=== PATIENT | male | born 1960 | race Caucasian/White ===

== ENCOUNTER 2019-08-07 21:54 | Emergency (ER) | payer MEDICAID, SELFPAY ==
--- NOTE | 2019-08-07 21:55 | PC.NURSE ---
cervical collar placed. pt agreeable to plan of care
[2019-08-07 22:06] VITALS: BP 152/75; PULSE 78; RESP 17; TEMP 36.7; O2SAT 98; BMI 24.5
--- NOTE | 2019-08-07 22:20 | CT_ITS ---
PROCEDURE: CT HEAD/BRAIN WO CON CLINICAL INDICATION: fall Head injury with headache/pain, contusion, abrasion or hematoma COMPARISON: No exams were available for comparison TECHNIQUE: Axial images obtained. All CT scans at the facility use one or more dose reduction, viz: automated exposure control, ma/kV adjustment per patient size (including targeted exams where dose is matched to indication, i.e. head), or iterative reconstruction technique. FINDINGS: No midline shift, mass effect, intracranial hemorrhage, hydrocephalus, or extra-axial fluid collection is evident. The calvarium has an unremarkable appearance. No mastoid effusion. No sinus air-fluid level. IMPRESSION: No acute intracranial finding Dictated by: Marbin Coleman MD 08/08/2019 06:53 Electronically signed by Marbin Coleman MD in [facility] 08/08/2019 06:53
--- NOTE | 2019-08-07 22:20 | XR_ITS ---
PROCEDURE: XR PELVIS 1-2V CLINICAL INDICATION: fall Posttraumatic pain COMPARISON: No exams were available for comparison TECHNIQUE: XR Pelvis AP View FINDINGS: No fracture or dislocation is evident. No significant degenerative change. No lytic or blastic change. IMPRESSION: No acute findings. Dictated by: Marbin Coleman MD 08/08/2019 05:30 Electronically signed by Marbin Coleman MD in [facility] 08/08/2019 05:30
--- NOTE | 2019-08-07 22:20 | XR_ITS ---
PROCEDURE: XR CHEST PORTABLE CLINICAL HISTORY: fall Posttraumatic pain COMPARISON: No exams were available for comparison FINDINGS: The cardiomediastinal silhouette and pulmonary vascularity are within normal limits. The lungs are clear without infiltrates, suspicious nodules, or pleural effusions. No acute bony abnormalities. IMPRESSION: No acute findings. Dictated by: Marbin Coleman MD 08/08/2019 05:31 Electronically signed by Marbin Coleman MD in [facility] 08/08/2019 05:31
--- NOTE | 2019-08-07 22:20 | CT_ITS ---
PROCEDURE: CT CERVICAL SPINE WO CON CLINICAL INDICATION: fall Neck injury with pain, contusion/abrasion or hematoma, cervical sprain/strain COMPARISON: No exams were available for comparison TECHNIQUE: Axial images obtained with sagittal and coronal reformats. All CT scans at the facility use one or more dose reduction, viz: automated exposure control, ma/kV adjustment per patient size (including targeted exams where dose is matched to indication, i.e. head), or iterative reconstruction technique. Axial spiral CT scanning performed of the cervical spine beginning at the base of the skull and continuing to the upper T-spine. 3-D multiplanar reconstruction with 3-D manipulation of volumetric data set in image rendering was completed by the radiologist and/or technologist with the supervision of the radiologist on independent workstation. FINDINGS: Normal alignment. Mild degenerative disc disease C2-C3 and C5-C6 with minimal posterior osteophytes at C5-C6 mild degenerative disc disease C3-C4 with mild right foraminal narrowing from uncovertebral hypertrophy No acute fracture or dislocation. Calcified granuloma left apex. Incomplete visualization of the a 3 mm nodule in the right upper lobe anteriorly. There are other smaller nodules in the right apex. IMPRESSION: Degenerative changes, no acute fracture. Right apical nodules. Consider six-month follow-up chest CT Dictated by: Marbin Coleman MD 08/08/2019 06:57 Electronically signed by Marbin Coleman MD in [facility] 08/08/2019 06:57
--- NOTE | 2019-08-07 22:23 | PC.NURSE ---
called and asked lab to draw blood on patient, spoke with alvaro
[2019-08-07 22:40] LABS: Basophils % 0.3 % (0.1-2.0); Eosinophils # 0.1 K/mm3 (0.0-0.4); Eosinophils % 0.7 % (0.1-12.0); Hematocrit 41.9 % (42.0-52.0); Hemoglobin 14.9 g/dL (14.1-18.0); Lymphocytes # 1.9 K/mm3 (0.7-4.5); Lymphocytes % 28.2 % (10-50); Mean Corpuscular HGB Conc 35.6 g/dL (31.8-35.4); Mean Corpuscular Hemoglobin 33.9 pg (27.0-31.2); Mean Platelet Volume 7.1 fl (7.4-10.4); Monocytes # 0.3 K/mm3 (0.1-1.0); Monocytes % 4.7 % (1.7-9.3); Neutrophils # 4.4 K/mm3 (1.8-7.8); Neutrophils % 66.1 % (37.0-80.0); Platelet Count 272 K/mm3 (142-424); Red Blood Count 4.41 M/mm3 (4.60-6.20); Red Cell Distribution Width 14.2 % (11.5-17.5); White Blood Count 6.6 K/mm3 (4.8-10.8)
--- NOTE | 2019-08-07 22:46 | HMH.EDOD ---
ED Disposition Clinical Impression: Poisoning by opiate or related narcotic Disposition: Home, Self-Care Condition on Discharge: Good Instructions: DI for Drug Overdose in Adults Additional Instructions: call pcp for follow up Referrals: Provider,Referral, [Primary Care Provider] - - Critical Care Critical Care Time: No Attestation: On 08/07/19, the high probability of a clinically significant, sudden or life threatening deterioration of the following system(s) required my full and direct attention, intervention and personal management. The time I documented below is in addition to time spent performing reported procedures but includes the following listed in this critical care notation. Medical Decision Making - Medical Records Medical records reviewed: Yes: I reviewed the patient's medical records. - Josue Inquiry Pt receiving controlled substance: No Vital Signs: 08/07/19 22:06 Temperature 98.0 F Temperature Source Oral Pulse Rate [Right Brachial] 78 Respiratory Rate 17 Blood Pressure [Right Arm] 152/75 H Blood Pressure Mean [Right Arm] 100 Blood Pressure Source [Right Arm] Automatic Cuff Blood Pressure Position [Right Arm] Sitting 02 Sat by Pulse Oximetry 98 Oxygen Delivery Method Room Air - Lab Data Lab results reviewed: Yes: I reviewed the patient's lab results. Lab Results 08/07/19 22:31: WBC 6.6, RBC 4.41 L, Hgb 14.9, Hct 41.9 L, MCV 95.0 H, MCH 33.9 H, MCHC 35.6 H, RDW 14.2, Plt Count 272, MPV 7.1 L, Neut % (Auto) 66.1, Lymph % (Auto) 28.2, [place] % (Auto) 4.7, Eos % (Auto) 0.7, Baso % (Auto) 0.3, Neut # (Auto) 4.4, Lymph # (Auto) 1.9, [place] # (Auto) 0.3, Eos # (Auto) 0.1, Baso # (Auto) 0.0 08/07/19 22:31: Sodium 136, Potassium 3.5, Chloride 104, Carbon Dioxide 21 L, Anion Gap 14.5, BUN 12, Creatinine 0.90, Estimated Creat Clear 76, Estimated GFR 86, Est GFR ( Amer) 104, Glucose 111 H, Calcium 8.7, Total Bilirubin 0.6, AST 58, ALT 28, Alkaline Phosphatase 88, Total Protein 7.3, Albumin 4.2, Globulin 3.1, Albumin/Globulin Ratio 1.4, Salicylates < 1.0 L, Acetaminophen < 10 L 08/07/19 22:31: Plasma/Serum Alcohol 58 H Result diagrams: 08/07/19 22:31 08/07/19 22:31 Orders (Tests/Meds): ORDERS Category Date Time Status CT cervical spine wo con Stat Cat Scan 08/07/19 22:[address] head/brain wo con Stat Cat Scan 08/07/19 22:20 Taken XR chest portable Stat Exams 08/07/19 22:20 Taken XR pelvis 1-2V Stat Exams 08/07/19 22:20 Taken UA [Urinalysis and Microscopic] Stat Lab 08/07/19 23:32 Ordered UDS [Drug Screen,Urine] Stat Lab 08/07/19 23:32 Ordered - Radiology Data #1 Image(s): Chest, Pelvis Image Reviewed: Yes I reviewed the patient's radiology image Preliminary Findings: No Fracture Seen - CT Data CT Scan: Head, C-Spine Time Received: 23:[address] Reviewed: Yes: I have viewed the radiologist's interpretation Preliminary Findings: No Fracture Seen - Reevaluation(s) Time: 23:48 Reevaluation #1: stable Overdose HPI - General Chief Complaint: Overdose Stated Complaint: unresponsive Time Seen by Provider: 08/07/19 22:15 Mode of Arrival: Family Vehicle Source of Information: Patient, Medical Record Limitations: No Limitations Description of Symptoms (Recalled from ER Triage Doc. by RN): pt was found unresponsive at home, cyanotic upon ems arrival; narcan was given and he immediately woke up; denies ingestion of anything, and also states he doesn't remember event. pd and ems stated patient is well-known to them and he doesn't have any drug history - History of Present Illness HPI Narrative: pt reports crushing pill and nasal snort with dec loc and was revived with sharan GIANG complaint: accidental overdose Onset (ago): hour(s) Timing confirmed by: family member Context: Accidental Overdose: uncertain what happened Treatments Prior to Arrival: narcan - Related Data Previous Rx's Medication Instructions Recorded Mupirocin [Bactroban 2% Oi
[2019-08-07 22:53] LABS: Chloride 104 mmol/L (98-107); Sodium 136 mmol/L (136-145)
[2019-08-07 22:54] LABS: Potassium 3.5 mmoL/L (3.5-5.1)
[2019-08-07 22:56] LABS: Albumin Level 4.2 g/dl (3.5-5.0); Albumin/Globulin Ratio 1.4 (1.1-1.8); Alkaline Phosphatase 88 U/L (38-126); Anion Gap 14.5 mEq/L (5-15); Bilirubin,Total 0.6 mg/dl (0.2-1.3); Blood Urea Nitrogen 12 mg/dl (9-20); Calcium 8.7 mg/dl (8.4-10.2); Carbon Dioxide 21 mmol/L (22.0-30.0); Creatinine Clearance Estimated 76 mL/min (50-200); Estimated Glomerular Filt Rate 86 ml/min (>60); Ethyl Alcohol 58 mg/dl (0-10); GFR (African American) 104 ML/MIN (>60); Globulin 3.1 g/dL (1.3-3.2); Glucose 111 mg/dl (74-100); Total Protein,Serum 7.3 g/dl (6.3-8.2)
[2019-08-07 22:57] LABS: Alanine Aminotransferase 28 U/L (12-78); Aspartate Amino Transferase 58 U/L (17-59)
[2019-08-07 22:59] LABS: Acetaminophen < 10 ug/ml (10-30); Salicylate < 1.0 mg/dL (2.0-20.0)
[2019-08-08 00:15] VITALS: BP 159/91; PULSE 76; RESP 16; TEMP 36.7; O2SAT 99
[2019-08-08 14:20] LABS: POC Glucose,Bedside 130 (70-110)
== END 2019-08-08 00:18 | disposition home or self-care (01) ==
PROVIDERS: Emergency Provider Emergency Medicine
DX: T40.1X4A Poisoning by heroin, undetermined, initial encounter (principal); Z86.73 Personal history of transient ischemic attack (TIA), and cerebral infarction without residual deficits; I10 Essential (primary) hypertension; F17.210 Nicotine dependence, cigarettes, uncomplicated
CPT/HCPCS: 36415; 70450; 71045; 72125; 72170; 80053; 80329; 82962; 85025; 99282

== ENCOUNTER 2020-05-28 14:55 | Inpatient (IN) | payer MEDICAID, SELFPAY ==
[2020-05-28] VITALS (10 sets, daily range): BP systolic 141–201; BP diastolic 69–181; PULSE 56–78; RESP 16–22; TEMP 36.5–36.7; O2SAT 96–100; BMI 22.6; BMI 21.8
--- NOTE | 2020-05-28 14:55 | ECG_ITS ---
APPROVED REPORT Exam: Resting ECG HR:68 bpm ECG Measurements Heart Rate 68 AXES [place] 156 P 50 QRSd 88 QRS -19 QT 442 T 19 QTc 469 Conclusion Normal sinus rhythm Normal ECG Electronically signed by : Rubio Haji, 05/29/2020 13:16:01
--- NOTE | 2020-05-28 14:57 | HMH.EDGENADL ---
ED Disposition Clinical Impression: Alcohol use disorder Pancreatitis Qualifiers: Chronicity: acute Pancreatitis type: unspecified pancreatitis type Acute pancreatitis complication: no infection or necrosis Qualified Code(s): K85.90 - Acute pancreatitis without necrosis or infection, unspecified Disposition: Home, Self-Care Condition on Discharge: Fair Instructions: DI for Acute Abdominal Pain, DI for Pancreatitis, DI for Alcohol Use Disorder Additional Instructions: You have been evaluated for acute pancreatitis. Possibly due to alcohol. Please drink clear liquids and follow a bland diet. Take Zofran for nausea. Take ibuprofen for pain. [place] for extreme pain. Follow-up with your primary care doctor within 24 to 48 hours. Return to the emergency department if you have any new or worsening pain, vomiting, other concerns. Prescriptions: Hydrocod/Acet 5/325 mg [[place] 5/325mg tablet] 1 tab PO Q6HP PRN #12 tab PRN Reason: severe pain Transmission Status: Sent to [facility] ondansetron HCL [Ondansetron 4mg tab*] 4 mg PO Q6 PRN #12 tab PRN Reason: Nausea And Vomiting Transmission Status: Pending to [email or web address] Referrals: PCP,No [Primary Care Provider] - Time of Disposition: 17:53 - Critical Care Critical Care Time: No Attestation: On , the high probability of a clinically significant, sudden or life threatening deterioration of the following system(s) required my full and direct attention, intervention and personal management. The time I documented below is in addition to time spent performing reported procedures but includes the following listed in this critical care notation. Medical Decision Making - Medical Records Medical records reviewed: Yes: I reviewed the patient's medical records. - Josue Inquiry Pt receiving controlled substance: No Vital Signs: 05/28/20 15:14 05/28/20 16:01 05/28/20 17:01 Temperature 98 F Temperature Source Oral Pulse Rate 68 56 L Pulse Rate [Radial] 62 Respiratory Rate 22 16 16 Blood Pressure 178/107 H 201/181 H Blood Pressure [Left Arm] 177/122 H Blood Pressure [Right Arm] 195/168 H Blood Pressure Mean 145 186 Blood Pressure Mean [Left Arm] 140 Blood Pressure Mean [Right Arm] 177 Blood Pressure Position [Left Arm] Sitting Blood Pressure Position [Right Arm] Sitting 02 Sat by Pulse Oximetry 98 100 99 Oxygen Delivery Method Room Air - Lab Data Lab Results 05/28/20 15:03: WBC 9.0, RBC 5.04, Hgb 16.5, Hct 47.5, MCV 94.1 H, MCH 32.6 H, MCHC 34.7, RDW 14.2, Plt Count 358, MPV 7.7, Neut % (Auto) 78.2, Lymph % (Auto) 15.7, [place] % (Auto) 4.6, Eos % (Auto) 1.0, Baso % (Auto) 0.4, Neut # (Auto) 7.1, Lymph # (Auto) 1.4, [place] # (Auto) 0.4, Eos # (Auto) 0.1, Baso # (Auto) 0.0 05/28/20 15:03: PT 10.7, INR 0.90 05/28/20 15:03: Sodium 135 L, Potassium 4.1, Chloride 101, Carbon Dioxide 25, BUN 14, Creatinine 0.90, Estimated Creat Clear 69, Estimated GFR 86, Est GFR ( Amer) 103, Glucose 128 H, Calcium 9.7, Total Bilirubin 0.9, AST 40, ALT 24, Alkaline Phosphatase 96, Troponin I < 0.01, Total Protein 8.1, Albumin 4.7, Globulin 3.4 H, Albumin/Globulin Ratio 1.4, Lipase 2173 H Result diagrams: 05/28/20 15:03 05/28/20 15:03 Orders (Tests/Meds): ED MEDICATIONS Discontinued Medications Generic Name Dose Route Start Last Admin Trade Name Freq PRN Reason Stop Dose Admin Sodium Chloride 1,000 mls @ 999 mls/hr 05/28/20 15:00 05/28/20 15:10 Sod Chlor 0.9% 1000ml Bag IV 05/28/20 16:00 999 mls/hr .Q1H1M KATINA Administration Iopamidol 75 ml 05/28/20 16:31 05/28/20 16:32 Iopamidol-370 (76%);100ml Bottle IV 05/28/20 16:32 75 ml ONCE ONE Administration Morphine Sulfate 4 mg 05/28/20 15:07 05/28/20 15:10 Morphine 4mg/Ml Syringe IV 05/28/20 15:08 4 mg ONCE ONE Administration Morphine Sulfate 4 mg 05/28/20 16:14 05/28/20 16:22 Morphine 4mg/Ml Syringe IV 05/28/20 16:15 4 mg ONCE ONE Admini
--- NOTE | 2020-05-28 14:58 | XR_ITS ---
PROCEDURE: XR CHEST PORTABLE CLINICAL HISTORY: upper abd pain COMPARISON: CR XR CHEST PORTABLE from 08/07/2019 FINDINGS: The cardiomediastinal silhouette and pulmonary vascularity are within normal limits. No lobar consolidation or collapse. There is a faint opacity in the left upper lobe overlying the 3rd rib anteriorly possibly due to summation artifact versus developing nodule. Upright PA and lateral chest may provide further evaluation. This area measures approximately 8 mm. No acute bony findings. IMPRESSION: Questionable left upper lobe nodule otherwise negative Dictated by: Marbin Coleman MD 05/28/2020 15:22 Marbin Coleman MD in [facility] 05/28/2020 15:22
--- NOTE | 2020-05-28 15:05 | PC.NURSE ---
rad at bedside.
[2020-05-28 15:21] LABS: Chloride 101 mmol/L (98-107); Sodium 135 mmol/L (136-145)
[2020-05-28 15:22] LABS: Potassium 4.1 mmoL/L (3.5-5.1)
[2020-05-28 15:24] LABS: Alanine Aminotransferase 24 U/L (12-78); Albumin Level 4.7 g/dl (3.5-5.0); Albumin/Globulin Ratio 1.4 (1.1-1.8); Alkaline Phosphatase 96 U/L (38-126); Aspartate Amino Transferase 40 U/L (17-59); Bilirubin,Total 0.9 mg/dl (0.2-1.3); Blood Urea Nitrogen 14 mg/dl (9-20); Calcium 9.7 mg/dl (8.4-10.2); Carbon Dioxide 25 mmol/L (22.0-30.0); Creatinine Clearance Estimated 69 mL/min (50-200); Estimated Glomerular Filt Rate 86 ml/min (>60); GFR (African American) 103 ML/MIN (>60); Globulin 3.4 g/dL (1.3-3.2); Glucose 128 mg/dl (74-100); Total Protein,Serum 8.1 g/dl (6.3-8.2)
[2020-05-28 15:25] LABS: Basophils % 0.4 % (0.1-2.0); Eosinophils # 0.1 K/mm3 (0.0-0.4); Hematocrit 47.5 % (42.0-52.0); Hemoglobin 16.5 g/dL (14.1-18.0); Lymphocytes # 1.4 K/mm3 (0.7-4.5); Lymphocytes % 15.7 % (10-50); Mean Corpuscular HGB Conc 34.7 g/dL (31.8-35.4); Mean Corpuscular Hemoglobin 32.6 pg (27.0-31.2); Mean Corpuscular Volume 94.1 fl (80-94); Mean Platelet Volume 7.7 fl (7.4-10.4); Monocytes # 0.4 K/mm3 (0.1-1.0); Monocytes % 4.6 % (1.7-9.3); Neutrophils # 7.1 K/mm3 (1.8-7.8); Neutrophils % 78.2 % (37.0-80.0); Platelet Count 358 K/mm3 (142-424); Red Blood Count 5.04 M/mm3 (4.60-6.20); Red Cell Distribution Width 14.2 % (11.5-17.5)
[2020-05-28 15:30] LABS: Prothrombin Time 10.7 seconds (10.1-12.5)
[2020-05-28 15:31] LABS: Lipase 2173 U/L (23-300)
[2020-05-28 15:43] LABS: Troponin I < 0.01 ng/ml (0.00-0.034)
--- NOTE | 2020-05-28 16:13 | PC.NURSE ---
MD at bedside updating patient on plan of care and results.
--- NOTE | 2020-05-28 16:15 | CT_ITS ---
PROCEDURE: CT ABDOMEN PELVIS W CON CLINICAL INDICATION: abdominal pain Abdominal pain with nausea and vomiting COMPARISON: CT ABDPELW/O CT ABD PELVIS W/O CONTRAST from 06/17/2016 TECHNIQUE: IV Contrast: 75ML Isovue 370 Oral Contrast None Axial images obtained with sagittal and coronal reformats. All CT scans at the facility use one or more dose reduction, viz: automated exposure control, ma/kV adjustment per patient size (including targeted exams where dose is matched to indication, i.e. head), or iterative reconstruction technique. FINDINGS: LOWER THORAX: There are 2 nodular opacities in left lower lobe laterally measuring 4 mm each nonspecific. ABDOMEN & PELVIS: The liver, spleen, adrenal glands, and kidneys have an unremarkable appearance. There is minimal prominence of the left renal pelvicaliceal system not significantly changed. Edematous appearance of the pancreas with small amount of peripancreatic fluid. No evidence of pancreatic necrosis. No loculated fluid collection. The pancreatic duct is slightly prominent measuring approximately 5 mm in diameter in the head of the pancreas. Common bile duct is slightly prominent at 8 mm. No obvious pancreatic mass. There is a mild amount of retained colonic feces. No evidence of appendicitis. There is colonic diverticulosis but no evidence of diverticulitis. Small bowel gas pattern is nonspecific with some fluid-filled loops of small bowel nondistended. Right-sided hydroceles noted. No acute bony anomalies. IMPRESSION: 1. Findings are compatible with acute uncomplicated pancreatitis with a small amount peripancreatic fluid 2. Pancreatic duct is slightly prominent as is the common bile duct. Consider MRCP for further evaluation to rule out distal obstructing lesion within the ampullary area. Dictated by: Marbin Coleman MD 05/29/2020 08:55 Marbin Coleman MD in [facility] 05/29/2020 08:55
--- NOTE | 2020-05-28 16:30 | PC.NURSE ---
pt going to rad.
--- NOTE | 2020-05-28 17:00 | PC.NURSE ---
pt returning from rad.
--- NOTE | 2020-05-28 17:50 | PC.NURSE ---
MD at bedside providing update on results
--- NOTE | 2020-05-28 18:11 | PC.NURSE ---
Paging for Dr Valentino per MD Edge's request
--- NOTE | 2020-05-28 18:14 | PC.NURSE ---
Called [facility] for a bed.
--- NOTE | 2020-05-28 18:20 | PC.NURSE ---
Dr Edge advised to cancel the repeat troponin on pt. Lab notified.
[2020-05-28 18:39] LABS: Adenovirus,PCR Not Detected (NotDetected); Bordetella Pertussis Not Detected (NotDetected); Chlamydophila Pneumoniae, PCR Not Detected (NotDetected); Coronavirus 19, PCR Not Detected (NotDetected); Coronavirus 229E Not Detected (NotDetected); Coronavirus NL63 Not Detected (NotDetected); Coronavirus OC43 Not Detected (NotDetected); Coronovirus HKU1,PCR Not Detected (NotDetected); Human Metapneumovirus Not Detected (NotDetected); Influenza A, PCR Not Detected (NotDetected); Influenza AH1, 2009 Not Detected (NotDetected); Influenza AH1, PCR Not Detected (NotDetected); Influenza AH3,PCR Not Detected (NotDetected); Influenza B, PCR Not Detected (NotDetected); Mycoplasma Pneumoniae, PCR Not Detected (NotDetected); Parainfluenza 1, PCR Not Detected (NotDetected); Parainfluenza 2, PCR Not Detected (NotDetected); Parainfluenza 3, PCR Not Detected (NotDetected); Parainfluenza 4, PCR Not Detected (NotDetected); Respiratory Syncytial Virus Not Detected (NotDetected)
--- NOTE | 2020-05-28 21:01 | PC.NURSE ---
REPORT CALLED TO DEEPIKA Stern
--- NOTE | 2020-05-28 21:38 | PC.NURSE ---
pt on floor at 2114 via wheel chair. Prashant
[2020-05-28 21:48] LABS: Ethyl Alcohol < 10 mg/dl (0-10)
--- NOTE | 2020-05-28 21:50 | PC.NURSE ---
home medication list is meds that were given in ER, pt does not take these at home and is on no medications at home
[2020-05-29] VITALS: BP 146/87; PULSE 66; RESP 16; TEMP 36.7; O2SAT 100
[2020-05-29 03:52] VITALS: BP 168/94; PULSE 86; RESP 18; TEMP 36.9; O2SAT 100
[2020-05-29 03:56] LABS: Lipase 3666 U/L (23-300)
[2020-05-29 03:59] LABS: Rhinovirus/Enterovirus Detected (NotDetected)
[2020-05-29 05:11] VITALS: BMI 21.7
[2020-05-29 07:41] LABS: Chloride 107 mmol/L (98-107); Sodium 142 mmol/L (136-145)
[2020-05-29 07:42] LABS: Potassium 4.2 mmoL/L (3.5-5.1)
[2020-05-29 07:44] LABS: Alanine Aminotransferase 16 U/L (12-78); Alkaline Phosphatase 79 U/L (38-126); Anion Gap 12.2 mEq/L (5-15); Aspartate Amino Transferase 34 U/L (17-59); Bilirubin,Total 0.8 mg/dl (0.2-1.3); Blood Urea Nitrogen 9 mg/dl (9-20); Carbon Dioxide 27 mmol/L (22.0-30.0); Cholesterol 205 mg/dl (140-200); Creatinine Clearance Estimated 66 mL/min (50-200); Estimated Glomerular Filt Rate 86 ml/min (>60); GFR (African American) 103 ML/MIN (>60); Triglycerides 127 mg/dl (30-150); VLDL Cholesterol 25 mg/dL (0-40)
[2020-05-29 07:45] LABS: Albumin/Globulin Ratio 1.3 (1.1-1.8); Calcium 8.9 mg/dl (8.4-10.2); Chol/HDL Ratio 3.7 (1-3.5); Glucose 101 mg/dl (74-100); HDL Cholesterol 55 mg/dl (40-60)
[2020-05-29 07:56] LABS: Direct LDL Cholesterol 103.32 mg/dL (100-129)
--- NOTE | 2020-05-29 07:58 | PC.NURSE ---
pt pleasant, AxOx4, lungs CTA, no complaints of SOA or chest pain, does complain of some abdominal pain, but has refused any PRN medications, ambulating independently in room
[2020-05-29 08:00] VITALS: BP 126/91; PULSE 78; RESP 16; TEMP 37; O2SAT 99
--- NOTE | 2020-05-29 09:05 | HMH.HP ---
*Admission Date: 05/29/20 *Chief complaint: Abdominal Pain *History of present illness: 50-year-old male patient presented to the [facility] department with complaints of abdominal pain, he reports pain began this morning and radiates from mid epigastrium to left lower quadrant quadrant. He describes pain as sharp and burning and is tender to the touch. He has no appetite and denies nausea/vomiting/diarrhea. He does drink alcohol daily stating he usually drinks 1-2 pints of liquor daily. There was a concern for acute pancreatitis, peptic ulcer or ulcer rupture. CT of the abdomen pelvis revealed pancreatic stranding and fluid consistent with early acute uncomplicated pancreatitis, no abscess, no pseudocyst. Test results were discussed with patient patient was adamant regarding being discharged home after proper instruction emergency department physician was ready to release patient home, as he was leaving he realized he could not tolerate his abdominal pain he agreed to be admitted. In the emergency department he received morphine and IV fluids Lab work reveals white blood cell count Chemistry reviewed reveal no actionable lab work Lipase 2174 05/28/2020 chest x-ray: FINDINGS: The cardiomediastinal silhouette and pulmonary vascularity are within normal limits. No lobar consolidation or collapse. There is a faint opacity in the left upper lobe overlying the 3rd rib anteriorly possibly due to summation artifact versus developing nodule. Upright PA and lateral chest may provide further evaluation. This area measures approximately 8 mm. No acute bony findings. IMPRESSION: Questionable left upper lobe nodule otherwise negative Dictated by: Jared 60-year-old male patient resting quietly in bed with eyes closed, awakens to verbal stimuli. He reports abdomen is still extremely tender, reports he is still nauseated. Denies vomiting or diarrhea. Explained importance of patient staying for testing and further assessment and treatment [facility] History I have reviewed the patient's past medical history: Yes Medical History: Reports:: Carotid Stenosis, Cerebrovascular Accident, Deep Vein Thrombosis, Hypertension Denies:: Cancer, Diabetes Mellitus Type 1, Diabetes Mellitus Type 2, MRSA *Have you ever received a pneumonia vaccine?: No *Have you received a flu vaccine this season?: No Other Surgeries: Yes: No Previous Surgery Amputation: No - *Social History Smoking Status: Never smoker Tobacco Type: cigarettes Alcohol Intake: current Alcohol Intake Frequency:: 3 or more drinks per day Substance Use Type: other *Occupational Status:: employed Household Members: spouse *Travel in the last 8 weeks: None Family Hx:: Cancer, Coronary Artery Disease, Heart Attack, Hyperlipidemia, Hypertension Review of Systems - Review of Systems Review of systems:: pertinent systems reviewed and negative unless documented below - Constitutional Reports fatigue, Reports lack of energy, Denies anorexia - Eyes Denies blind spots, Denies change in vision - ENT Denies abnormal hearing, Denies ear pain - *Cardiovascular Denies chest pain, Denies shortness of breath - *Respiratory Denies chest congestion, Denies cough - *Gastrointestinal Reports abdominal pain, Reports cramping, Reports heartburn, Reports nausea, Denies bright, red blood in stools, Denies black, tarry stools - *Musculoskeletal Denies joint pain, Denies muscle weakness - Integumentary/Breasts Denies bleeding lesions, Denies change in skin color - *Neurologic Denies dizziness, Denies headache(s), Denies numbness - Psychiatric Denies behavioral changes, Denies depression - Endocrine Denies cold intolerance, Denies heat intolerance - Hematologic/Lymphatic Denies easy bruising, Denies enlarged lymph nodes - Allergic/Immunologic Reports GI upset with certain foods, Denies lip swelling, Denies throat swelling Meds Home Medications Medication
--- NOTE | 2020-05-29 09:35 | HMH.PHAVTE ---
[facility] VTE Monitoring - Patient Demographics Admission date: 05/29/20 Report Date: 05/29/20 Time: 09:36 Allergies/Adverse Reactions: Patient Allergies No Known Allergies Allergy (Verified 05/28/20 21:12) Height: 1.68 m Weight: 61.235 kg Patient Problems: Current Active Problems Pancreatitis (Acute) Alcohol use disorder (Acute) - VTE Risk Labs: VTE Related Lab Results Hgb 16.5 g/dL (14.1-18.0) 05/28/20 15:03 Hct 47.5 % (42.0-52.0) 05/28/20 15:03 Plt Count 358 K/mm3 (142-424) 05/28/20 15:03 PT 10.7 seconds (10.1-12.5) 05/28/20 15:03 INR 0.90 (0.9-1.1) 05/28/20 15:03 BUN 9 mg/dl (9-20) D 05/29/20 07:19 Creatinine 0.90 mg/dl (0.66-1.25) 05/29/20 07:19 Estimated Creat Clear 66 mL/min (50-200) 05/29/20 07:19 VTE Score: 3 VTE Risk Level: Low Risk - Prophylaxis Types of VTE Prophylaxis: TEDS Knee High (JOSELUIS HOSE ORDERED)
[2020-05-29 12:51] LABS: Lipase 2738 U/L (23-300)
[2020-05-29 16:00] VITALS: BP 149/82; PULSE 67; RESP 18; TEMP 36.8; O2SAT 100
--- NOTE | 2020-05-29 18:29 | PC.NURSE ---
Pt has been anxious and agitated most of this shift. Pt has stated he is in pain, but has refused PRN pain meds except for one time. Favorable results stated after taking PRN meds. CIWAs have been performed q4h this shift, scores ranging from 0-2. No other acute changes or complaints at this time.
[2020-05-29 20:00] VITALS: BP 167/95; PULSE 76; RESP 17; TEMP 36.8; O2SAT 97
[2020-05-30 04:00] VITALS: BP 111/63; PULSE 90; RESP 16; TEMP 36.8; O2SAT 99
--- NOTE | 2020-05-30 05:15 | PC.NURSE ---
shift summary pts lung sounds are clear with sats maintained at 99-100% on room air with a rate ranging from 16-18. pt was a little anxious at the beginning of the shift but was able to calm down and get some sleep. pt is alert and oriented X4. pt samuel had no complaints tonight denies any pain, nausea, vomiting, or diarrhea.
[2020-05-30 05:17] VITALS: BMI 21.7
[2020-05-30 08:00] VITALS: BP 129/76; PULSE 87; RESP 18; TEMP 36.7; O2SAT 97
--- NOTE | 2020-05-30 09:22 | P.PN_ITS ---
Internal Medicine - PN: Subj *Date: 05/30/20 *Time: 08:15 Interval history: pt laying in bed states he feels much better, states abd tender but not having the abd pain most of the pain has cleared Exam Vital signs and Labs for Last 24 Hours: Temp Pulse Resp BP Pulse Ox 98.2 F 90 16 111/63 99 05/30/20 04:00 05/30/20 04:00 05/30/20 04:00 05/30/20 04:00 05/30/20 04:00 Laboratory Results - last 24 hr 05/29/20 12:13: Lipase 2738 H I & O for Last 24 hours: Intake & Output 05/27/20 05/28/20 05/29/20 05/30/20 11:59 11:59 11:59 11:59 Intake Total 0 / 0 0 / 0 Balance 0 / 0 0 / 0 Weight 135 lb 135 lb 8 oz - Constitutional no acute distress - *Routine HEENT Exam Head: Present: normocephalic Eye: Present: PERRL ENT: Present: mucous membranes moist - *Routine Neck Exam Present: supple, full ROM - *Routine Respiratory Exam Present: CTA bilaterally - *Routine Cardiovascular Exam Present: RRR - *Routine Abdominal Exam Present: soft, normoactive bowel sounds, tenderness. Absent: distended, rebound, obese - *Routine Extremities Exam Present: normal capillary refill. Absent: cyanosis, clubbing, edema - *Routine Skin Exam Present: warm. Absent: rash - *Routine Neurological Exam Present: alert, oriented X3 - Routine Psychiatric Exam Present: normal affect Assessment and Plan (1) Alcohol intoxication Status: Acute Qualifiers: Complication of substance-induced condition: uncomplicated Qualified Code(s): F10.920 - Alcohol use, unspecified with intoxication, uncomplicated Category: Medical Code(s): F10.929 - Alcohol use, unspecified with intoxication, unspecified (2) Pancreatitis Status: Acute Qualifiers: Chronicity: acute Pancreatitis type: unspecified pancreatitis type Acute pancreatitis complication: no infection or necrosis Qualified Code(s): K85.90 - Acute pancreatitis without necrosis or infection, unspecified Category: Medical Code(s): K85.90 - Acute pancreatitis without necrosis or infection, unspecified - Assessment and plan all Dx Assessment and Plan for all problems:: rounded with dr lamas all orders per dr lamas consult Virla Maharaj [facility] tomorrow check labs start alcohol protocol
[2020-05-30 09:45] LABS: Basophils % 0.5 % (0.1-2.0); Eosinophils # 0.1 K/mm3 (0.0-0.4); Eosinophils % 1.2 % (0.1-12.0); Hemoglobin 14.4 g/dL (14.1-18.0); Lymphocytes # 1.7 K/mm3 (0.7-4.5); Lymphocytes % 19.4 % (10-50); Mean Corpuscular HGB Conc 34.2 g/dL (31.8-35.4); Mean Corpuscular Hemoglobin 32.6 pg (27.0-31.2); Mean Corpuscular Volume 95.2 fl (80-94); Mean Platelet Volume 7.2 fl (7.4-10.4); Monocytes # 0.5 K/mm3 (0.1-1.0); Monocytes % 5.8 % (1.7-9.3); Neutrophils # 6.4 K/mm3 (1.8-7.8); Neutrophils % 73.2 % (37.0-80.0); Platelet Count 289 K/mm3 (142-424); Red Blood Count 4.41 M/mm3 (4.60-6.20); Red Cell Distribution Width 14.5 % (11.5-17.5); White Blood Count 8.7 K/mm3 (4.8-10.8)
[2020-05-30 09:49] LABS: Chloride 111 mmol/L (98-107); Potassium 4.2 mmoL/L (3.5-5.1); Sodium 137 mmol/L (136-145)
[2020-05-30 09:51] LABS: Lipase 503 U/L (23-300)
[2020-05-30 09:52] LABS: Anion Gap 15.2 mEq/L (5-15); Blood Urea Nitrogen 14 mg/dl (9-20); Calcium 8.5 mg/dl (8.4-10.2); Carbon Dioxide 15 mmol/L (22.0-30.0); Creatinine Clearance Estimated 67 mL/min (50-200); Estimated Glomerular Filt Rate 76 ml/min (>60); GFR (African American) 92 ML/MIN (>60); Glucose 52 mg/dl (74-100)
--- NOTE | 2020-05-30 14:53 | PC.NURSE ---
PT IS RESTING IN BED. HAS BEEN SLEEPING MOST OF THE DAY. RECEIVED PAIN MEDICATION FOR ABDOMINAL DISCOMFORT. PT STATED HE HAS VOIDED THIS SHIFT BUT HAS AMBULATED TO THE BATHROOM. ENCOURAGED PT TO USE URINAL SO WE COULD GET A SAMPLE AND KEEP UP WITH HIS OUTPUT. PT ONLY HAS MILD TREMORS WHEN HE EXTENDS ARMS. SPEECH IS SOMEWHAT GARBLED. PT IS GETTING SERAX. REFUSES TO TAKE HALDOL B/C PT STATED HE HAS TOOK IT IN THE PAST AND IT MADE HIM CRAZY. ACCORDING TO PT HE DRINKS OVER A PINT OF LIQUOR ON A DAILY BASIS. VSS AT THIS TIME. WILL CONTINUE TO MONITOR.
[2020-05-30 16:00] VITALS: BP 123/71; PULSE 84; RESP 18; TEMP 36.4; O2SAT 100
[2020-05-30 16:56] LABS: Microscopic, Urine URINE MICROSCOPIC (MICROSCOPIC)
[2020-05-30 17:00] LABS: Appearance,Urine CLEAR (Clear); Bilirubin,Urine Negative (Negative); Blood, Urine Negative (Negative); Color,Urine YELLOW (Yellow); Glucose,Urine (UA) Negative (Negative); Ketones,Urine 2+ (Negative); Leukocyte Esterase,Urine Negative (Negative); Nitrate,Urine Negative (Negative); Protein,Urine Negative (Negative); Specific Gravity, Urine 1.025 (1.005-1.030); Urobilinogen,Urine 0.2 EU/dl (0.2)
[2020-05-30 17:12] LABS: Barbiturates Screen,Urine Negative ng/ml (<200); Benzodiazepines Screen,Urine Negative ng/ml (<200)
[2020-05-30 17:13] LABS: Amphetamine/Metha Screen,Urine Negative ng/ml (<1000); Cannabinoid Screen,Urine Negative ng/ml (<50)
[2020-05-30 17:14] LABS: Cocaine Screen,Urine Negative ng/ml (<300)
[2020-05-30 17:15] LABS: Methadone Screen,Urine Negative ng/ml (<300); Opiate Screen,Urine Positive ng/ml (<300)
[2020-05-30 17:16] LABS: Phencyclidine Screen,Urine Negative ng/ml (<25)
[2020-05-30 19:53] VITALS: BP 137/82; PULSE 91; RESP 15; TEMP 36.7; O2SAT 99
[2020-05-31 04:00] VITALS: BP 141/85; PULSE 80; RESP 16; TEMP 36.8; O2SAT 97
--- NOTE | 2020-05-31 04:40 | PC.NURSE ---
shift summary pts lung sounds are clear with sats maintained at 97% or above on room air, with a rate ranging from 16-18. pt is alert and oriented X4. pt states he doesnt no want any procedures performed on him. pt denies any pain, nausea, vomiting, or diarrhea.
[2020-05-31 05:07] VITALS: BMI 21.7
[2020-05-31 06:53] LABS: Basophils % 0.6 % (0.1-2.0); Eosinophils # 0.2 K/mm3 (0.0-0.4); Eosinophils % 2.4 % (0.1-12.0); Hematocrit 41.8 % (42.0-52.0); Hemoglobin 14.1 g/dL (14.1-18.0); Lymphocytes # 1.4 K/mm3 (0.7-4.5); Mean Corpuscular HGB Conc 33.8 g/dL (31.8-35.4); Mean Corpuscular Hemoglobin 31.5 pg (27.0-31.2); Mean Corpuscular Volume 93.3 fl (80-94); Mean Platelet Volume 7.3 fl (7.4-10.4); Monocytes # 0.3 K/mm3 (0.1-1.0); Monocytes % 5.7 % (1.7-9.3); Neutrophils % 67.4 % (37.0-80.0); Platelet Count 320 K/mm3 (142-424); Red Blood Count 4.48 M/mm3 (4.60-6.20); Red Cell Distribution Width 14.7 % (11.5-17.5)
[2020-05-31 07:21] LABS: Chloride 111 mmol/L (98-107); Potassium 4.5 mmoL/L (3.5-5.1); Sodium 140 mmol/L (136-145)
[2020-05-31 07:24] LABS: Blood Urea Nitrogen 8 mg/dl (9-20); Creatinine Clearance Estimated 66 mL/min (50-200); Estimated Glomerular Filt Rate 98 ml/min (>60); GFR (African American) 119 ML/MIN (>60)
[2020-05-31 07:25] LABS: Anion Gap 10.5 mEq/L (5-15); Calcium 8.8 mg/dl (8.4-10.2); Carbon Dioxide 23 mmol/L (22.0-30.0); Glucose 81 mg/dl (74-100); Lipase 155 U/L (23-300)
[2020-05-31 08:00] VITALS: BP 167/107; PULSE 88; RESP 16; TEMP 36.8; O2SAT 99
--- NOTE | 2020-05-31 09:24 | PC.NURSE ---
PT DEMANDED TO HAVE IV REMOVED SO THAT HE COULD LEAVE. PT EDUCATED ON RISKS OF LEAVING AND REVIEWED PLAN OF CARE WITH THE PT. HE STATED THAT HE WAS NOT GOING TO HAVE ANY PROCEDURES AND THAT HE WAS LEAVING SOON HIS RIDE WAS HERE.
--- NOTE | 2020-05-31 20:23 | HMH.DCSUM ---
General - General Admission date:: 05/28/20 Discharge date: 05/31/20 HPI HPI: 50-year-old male patient presented to the [facility] department with complaints of abdominal pain, he reports pain began this morning and radiates from mid epigastrium to left lower quadrant quadrant. He describes pain as sharp and burning and is tender to the touch. He has no appetite and denies nausea/vomiting/diarrhea. He does drink alcohol daily stating he usually drinks 1-2 pints of liquor daily. There was a concern for acute pancreatitis, peptic ulcer or ulcer rupture. CT of the abdomen pelvis revealed pancreatic stranding and fluid consistent with early acute uncomplicated pancreatitis, no abscess, no pseudocyst. Test results were discussed with patient patient was adamant regarding being discharged home after proper instruction emergency department physician was ready to release patient home, as he was leaving he realized he could not tolerate his abdominal pain he agreed to be admitted. In the emergency department he received morphine and IV fluids Lab work reveals white blood cell count Chemistry reviewed reveal no actionable lab work Lipase 2174 05/28/2020 chest x-ray: FINDINGS: The cardiomediastinal silhouette and pulmonary vascularity are within normal limits. No lobar consolidation or collapse. There is a faint opacity in the left upper lobe overlying the 3rd rib anteriorly possibly due to summation artifact versus developing nodule. Upright PA and lateral chest may provide further evaluation. This area measures approximately 8 mm. No acute bony findings. IMPRESSION: Questionable left upper lobe nodule otherwise negative Dictated by: Jared 60-year-old male patient resting quietly in bed with eyes closed, awakens to verbal stimuli. He reports abdomen is still extremely tender, reports he is still nauseated. Denies vomiting or diarrhea. Explained importance of patient staying for testing and further assessment and treatment Hospital Course Hospital Course: Laboratory Tests 05/28/20 05/28/20 05/28/20 15:03 15:03 15:03 WBC 9.0 RBC 5.04 Hgb 16.5 Hct 47.5 MCV 94.1 H MCH 32.6 H MCHC 34.7 RDW 14.2 Plt Count 358 MPV 7.7 Neut % (Auto) 78.2 Lymph % (Auto) 15.7 [place] % (Auto) 4.6 Eos % (Auto) 1.0 Baso % (Auto) 0.4 Neut # (Auto) 7.1 Lymph # (Auto) 1.4 [place] # (Auto) 0.4 Eos # (Auto) 0.1 Baso # (Auto) 0.0 PT 10.7 INR 0.90 Sodium 135 L Potassium 4.1 Chloride 101 Carbon Dioxide 25 Anion Gap 9.0 BUN 14 Creatinine 0.90 Estimated Creat Clear 69 Estimated GFR 86 Est GFR ( Amer) 103 Glucose 128 H Calcium 9.7 Total Bilirubin 0.9 AST 40 ALT 24 Alkaline Phosphatase 96 Troponin I < 0.01 Total Protein 8.1 Albumin 4.7 Globulin 3.4 H Albumin/Globulin Ratio 1.4 Triglycerides Cholesterol LDL Cholesterol Direct VLDL Cholesterol HDL Cholesterol Cholesterol/HDL Ratio Lipase 2173 H Urine Color Urine Appearance Urine pH Ur Specific [place] Urine Protein Urine Glucose (UA) Urine Ketones Urine Blood Urine Nitrate Urine Bilirubin Urine Urobilinogen Ur Leukocyte Esterase Urine RBC Urine WBC Ur Squamous Epith Cells Urine Bacteria Urine Opiates Screen Urine Methadone Screen Ur Barbituates Screen Ur Phencyclidine Scrn Ur Amphetamines Screen U Benzodiazepines Scrn Urine Cocaine Screen U Marijuana (THC) Screen Plasma/Serum Alcohol Chlamy pneumoniae PCR Adenovirus (PCR) B. pertussis DNA (PCR) Coronavirus OC43 (PCR) Coronavirus HKU1 (PCR) Coronavirus 229E (PCR) SARS-CoV-2 (PCR) Coronavirus NL63 (PCR) Human Metapneumovir PCR Influenza A (H1) PCR Influ A (H1N1/09) PCR Influenza A (H3) PCR Influenza Type A (PCR) Infl
== END 2020-05-31 08:36 | disposition left against medical advice (07) | DRG 440 ==
LOC: ER 17:53 → 2ND 18:45
PROVIDERS: Emergency Medicine; Nurse Practitioner Family; Admitting Provider Family Medicine; Emergency Provider Emergency Medicine; Visit Provider Family Medicine
DX: K85.90 Acute pancreatitis without necrosis or infection, unspecified (principal); F10.129 Alcohol abuse with intoxication, unspecified; F17.210 Nicotine dependence, cigarettes, uncomplicated; Z86.718 Personal history of other venous thrombosis and embolism; I10 Essential (primary) hypertension; I65.29 Occlusion and stenosis of unspecified carotid artery; Z86.73 Personal history of transient ischemic attack (TIA), and cerebral infarction without residual deficits; Y90.0 Blood alcohol level of less than 20 mg/100 ml
CPT/HCPCS: 36415; 71045; 74177; 80048; 80053; 80061; 80305; 81001; 83690; 84484; 85025; 85610; 87581; 87633; 87798; 93005; 99283; J2405; Q9967

== ENCOUNTER 2021-05-31 15:51 | Emergency (ER) | payer MEDICAID, SELFPAY ==
[2021-05-31] VITALS (7 sets, daily range): BP systolic 122–169; BP diastolic 85–112; PULSE 65–98; RESP 16–23; TEMP 36.5; O2SAT 96–99; BMI 23.0
--- NOTE | 2021-05-31 15:51 | ECG_ITS ---
APPROVED REPORT Exam: Resting ECG HR:78 bpm ECG Measurements Heart Rate 78 AXES MD 142 P 65 QRSd 89 QRS -16 QT 402 T 47 QTc 435 Conclusion SINUS RHYTHM POSSIBLE LEFT ATRIAL ENLARGEMENT [-0.1mV P-WAVE IN V1/V2] BORDERLINE ECG UNCONFIRMED REPORT Electronically signed by : Rubio Haji MD 06/02/2021 15:59:57
--- NOTE | 2021-05-31 16:10 | XR_ITS ---
PROCEDURE INFORMATION: Exam: XR Chest Exam date and time: 05/31/2021 4:09 PM Age: 61 years old Clinical indication: Pain; Chest pressure; Additional info: Chest pain TECHNIQUE: Imaging protocol: XR of the chest. Views: 2 views. COMPARISON: CR XR CHEST PORTABLE 05/28/2020 3:06 PM FINDINGS: Lungs: Unremarkable. No consolidation. Pleural spaces: Unremarkable. No pleural effusion. No pneumothorax. Heart/Mediastinum: Unremarkable. No cardiomegaly. Bones/joints: Unremarkable. IMPRESSION: No acute findings.
[2021-05-31 16:21] LABS: Basophils # 0.1 K/mm3 (0-0.2); Basophils % 0.9 % (0.1-2.0); Eosinophils # 0.1 K/mm3 (0.0-0.4); Eosinophils % 0.4 % (0.1-12.0); Hematocrit 53.2 % (42.0-52.0); Hemoglobin 17.9 g/dL (14.1-18.0); Lymphocytes # 0.8 K/mm3 (0.7-4.5); Lymphocytes % 5.4 % (10-50); Mean Corpuscular HGB Conc 33.7 g/dL (31.8-35.4); Mean Corpuscular Hemoglobin 33.7 pg (27.0-31.2); Mean Corpuscular Volume 100.3 fl (80-94); Mean Platelet Volume 7.7 fl (7.4-10.4); Monocytes # 0.6 K/mm3 (0.1-1.0); Monocytes % 3.7 % (1.7-9.3); Neutrophils # 13.8 K/mm3 (1.8-7.8); Neutrophils % 89.6 % (37.0-80.0); Platelet Count 404 K/mm3 (142-424); Red Blood Count 5.31 M/mm3 (4.60-6.20); Red Cell Distribution Width 13.7 % (11.5-17.5); White Blood Count 15.4 K/mm3 (4.8-10.8)
[2021-05-31 16:25] LABS: MANUAL DIFFERENTIAL MANUAL DIFFERENTIAL (MANUAL DIFF)
[2021-05-31 16:27] LABS: Chloride 98 mmol/L (98-107); Sodium 136 mmol/L (136-145)
[2021-05-31 16:28] LABS: Potassium 3.9 mmoL/L (3.5-5.1)
[2021-05-31 16:30] LABS: Amylase 452 U/L (30-110); Blood Urea Nitrogen 13 mg/dl (9-20); Creatinine Clearance Estimated 71 mL/min (50-200); Estimated Glomerular Filt Rate 85 ml/min (>60); GFR (African American) 103 ML/MIN (>60)
[2021-05-31 16:31] LABS: Anion Gap 13.9 mEq/L (5-15); Calcium 8.7 mg/dl (8.4-10.2); Carbon Dioxide 28 mmol/L (22.0-30.0); Glucose 123 mg/dl (74-100)
--- NOTE | 2021-05-31 16:31 | HMH.EDCP ---
ED Disposition Clinical Impression: Pancreatitis, alcoholic, acute Qualifiers: Acute pancreatitis complication: no infection or necrosis Qualified Code(s): K85.20 - Alcohol induced acute pancreatitis without necrosis or infection Disposition: Home, Self-Care Condition on Discharge: Fair Instructions: DI for Atypical Chest Pain, DI for Pancreatitis Additional Instructions: Please seek help to stop drinking alcohol. Stick to a clear liquid diet for the next few days. Return to the emergency department if you feel worse in any way. Follow-up with your primary care doctor in the next 3 to 4 days. All medications as prescribed. Prescriptions: Ondansetron [Zofran 4mg ODT] 4 mg PO TIDP PRN #12 tab PRN Reason: Nausea Transmission Status: Pending to [facility] Referrals: Provider,Referral, [Primary Care Provider] - - Critical Care Critical Care Time: No Attestation: On 05/31/21, the high probability of a clinically significant, sudden or life threatening deterioration of the following system(s) required my full and direct attention, intervention and personal management. The time I documented below is in addition to time spent performing reported procedures but includes the following listed in this critical care notation. Medical Decision Making - Medical Records Medical records reviewed: Yes: I reviewed the patient's medical records. - Josue Inquiry Pt receiving controlled substance: No Vital Signs: 05/31/21 16:05 05/31/21 16:30 05/31/21 16:38 Temperature 97.7 F Temperature Source Oral Pulse Rate 78 78 Pulse Rate [Left Radial] 65 Respiratory Rate 16 23 20 Blood Pressure 149/111 H 164/110 H Blood Pressure [Right Arm] 139/85 Blood Pressure Mean 123 132 Blood Pressure Mean [Right Arm] 103 Blood Pressure Source [Right Arm] Automatic Cuff Blood Pressure Position [Right Arm] Sitting 02 Sat by Pulse Oximetry 99 98 98 Oxygen Delivery Method Room Air 05/31/21 17:00 05/31/21 17:38 05/31/21 18:00 Temperature Temperature Source Pulse Rate 80 89 98 H Pulse Rate [Left Radial] Respiratory Rate 20 17 18 Blood Pressure 169/112 H 139/98 H 145/99 H Blood Pressure [Right Arm] Blood Pressure Mean 140 111 106 Blood Pressure Mean [Right Arm] Blood Pressure Source [Right Arm] Blood Pressure Position [Right Arm] 02 Sat by Pulse Oximetry 96 98 98 Oxygen Delivery Method - Lab Data Lab results reviewed: Yes: I reviewed the patient's lab results. Lab Results 05/31/21 15:07: Total Bilirubin 1.1, Direct Bilirubin 0.3, Conjugated Bilirubin 0.0, Indirect Bilirubin 0.8, Unconjugated Bilirubin 0.9, AST 48, ALT 29, Alkaline Phosphatase 107, Total Protein 7.9, Albumin 4.4 05/31/21 16:07: Sodium 136, Potassium 3.9, Chloride 98, Carbon Dioxide 28, Anion Gap 13.9, BUN 13, Creatinine 0.90, Estimated Creat Clear 71, Estimated GFR 85, Est GFR ( Amer) 103, Glucose 123 H, Calcium 8.7, Troponin I < 0.01, Amylase 452 H* 05/31/21 16:07: WBC 15.4 H, RBC 5.31, Hgb 17.9, Hct 53.2 H, MCV 100.3 H, MCH 33.7 H, MCHC 33.7, RDW 13.7, Plt Count 404, MPV 7.7, Neut % (Auto) 89.6 H, Lymph % (Auto) 5.4 L, Real % (Auto) 3.7, Eos % (Auto) 0.4, Baso % (Auto) 0.9, Neut # (Auto) 13.8 H, Lymph # (Auto) 0.8, Real # (Auto) 0.6, Eos # (Auto) 0.1, Baso # (Auto) 0.1, Total Counted 100, Neutrophils % (Manual) 89 H, Lymphocytes % (Manual) 7 L, Monocytes % (Manual) 3, Eosinophils % (Manual) 1, Platelet Estimate Normal, Macrocytosis 1+ 05/31/21 16:07: Lipase 2180 H Result diagrams: 05/31/21 16:07 05/31/21 16:07 Orders (Tests/Meds): ED MEDICATIONS Generic Name Dose Route Start Last Admin Trade Name Freq PRN Reason Stop Dose Admin Sodium Chloride 10 ml 05/31/21 16:10 Sodium Chloride 0.9% 10ml Flush Syringe IV 06/30/21 16:09 NEEDED PRN Maintain IV Site Discontinued Medications Generic Name Dose Route Start Last Admin Trade Name Freq PRN Reason Stop Dose Admin Ketorolac Tr
[2021-05-31 16:48] LABS: Troponin I < 0.01 ng/ml (0.00-0.034)
[2021-05-31 16:49] LABS: Lipase 2180 U/L (23-300)
[2021-05-31 16:57] LABS: Alanine Aminotransferase 29 U/L (12-78); Albumin Level 4.4 g/dl (3.5-5.0); Alkaline Phosphatase 107 U/L (38-126); Aspartate Amino Transferase 48 U/L (17-59); Bilirubin,Direct 0.3 mg/dl (0.0-0.4); Bilirubin,Indirect 0.8 mg/dL (0.0-0.9); Bilirubin,Total 1.1 mg/dl (0.2-1.3); Bilirubin,Unconjugated 0.9 mg/dL (0.0-1.1); Total Protein,Serum 7.9 g/dl (6.3-8.2)
[2021-05-31 17:51] LABS: Eosinophils % 1 % (0-3); Lymphocytes % 7 % (10-50); Macrocytosis 1+; Monocytes % 3 % (2-9); Neutrophils % 89 % (42-76); Platelet Estimate Normal; Total Cells Counted 100
--- NOTE | 2021-05-31 18:25 | PC.NURSE ---
Pt attempting to drink fluids at this time.
== END 2021-05-31 19:11 | disposition home or self-care (01) ==
PROVIDERS: Emergency Provider Emergency Medicine
DX: R07.9 Chest pain, unspecified (principal); K85.20 Alcohol induced acute pancreatitis without necrosis or infection; R11.10 Vomiting, unspecified; R10.9 Unspecified abdominal pain; I10 Essential (primary) hypertension; M48.02 Spinal stenosis, cervical region; Z86.73 Personal history of transient ischemic attack (TIA), and cerebral infarction without residual deficits; Z86.718 Personal history of other venous thrombosis and embolism; Z82.49 Family history of ischemic heart disease and other diseases of the circulatory system; Z83.438 Family history of other disorder of lipoprotein metabolism and other lipidemia; Z80.9 Family history of malignant neoplasm, unspecified
CPT/HCPCS: 71046; 80048; 80076; 82150; 83690; 84484; 85007; 85025; 93005; 96374; 96375; 99285; J2405

== ENCOUNTER 2022-05-14 03:14 | Emergency (ER) | payer MEDICAID, SELFPAY ==
[2022-05-14] VITALS (11 sets, daily range): BP systolic 109–161; BP diastolic 53–100; PULSE 68–101; RESP 14–19; TEMP 36.5–36.7; O2SAT 94–98; BMI 19.6; BMI 20.6
--- NOTE | 2022-05-14 03:08 | HMH.EDGENADL ---
Discharge Plan Disposition Patient Disposition: Home, Self-Care Condition: Good Chief Complaint: Overdose Prescriptions Prescriptions: No Action ondansetron HCl 4 MG tablet 4 mg PO Q6 PRN (Reason: Nausea And Vomiting) Qty: 12 0RF Label Comments: does not take hydrocodone-acetaminophen 1 TAB tablet 1 tab PO Q6HP PRN (Reason: severe pain) Qty: 12 0RF Label Comments: does not take ondansetron 4 MG tablet,disintegrating 4 mg PO TIDP PRN (Reason: Nausea) Qty: 12 0RF Referrals Follow up/Referrals: Provider,Referral, [Primary Care Provider] - See instructions Clinical Impressions Clinical Impression: Drug overdose Instructions Patient Instructions: DI for Drug Overdose in Adults Print Language Print Language: Cymro Discharge ED Provider: Reynaldo Pride General Adult HPI General Chief complaint: Overdose Stated complaint: suspected OD Time Seen by Provider: 05/14/22 07:32 History of Present Illness HPI narrative: Patient presents to the emergency department after reportedly overdosing on potential [place] prior to arrival. The patient was given 2 mg of intranasal Narcan followed by 2 mg of IV Narcan. He was found to have significant improvement in his mentation and respiratory effort however the patient has been a little bit confused since his arousal. His is currently on hospice. He does not remember what happened. Related Data Previous Rx's Medication Instructions Recorded hydrocodone 5 mg-acetaminophen 325 1 tab PO Q6HP PRN severe pain #12 05/28/20 mg tablet tabs ondansetron HCl 4 mg tablet 4 mg PO Q6 PRN Nausea And Vomiting 05/28/20 #12 tabs ondansetron 4 mg disintegrating 4 mg PO TIDP PRN Nausea #12 tabs 05/31/21 tablet Allergies Allergy/AdvReac Type Severity Reaction Status Date / Time No Known Allergies Allergy Verified 05/28/20 21:12 [facility] Disclaimer: The information contained in this section may have been updated after the patient was seen, as this information can be updated by other users. Social History Smoking Status: Current every day smoker tobacco type: cigarettes second hand exposure: Yes alcohol intake: current substance use type: other current occupational status: employed Travel in the last 8 weeks: None household members: spouse caffeine: Yes ROS Obtained: Yes All systems reviewed & no additional complaints except as documented Neurologic Neurologic: Reports other (Altered mental status, suspected overdose) Physical Exam General General appearance: other (Awake, alert, mentally sluggish) Head Head exam: atraumatic and normocephalic Eye Eye exam: Present normal appearance, PERRL and EOMI ENT ENT exam: Present other (White powder noted in right nose) Respiratory Respiratory exam: Present normal lung sounds bilaterally Cardiovascular Cardiovascular exam: Present regular rate, normal rhythm and normal heart sounds Abdominal Exam Abdominal exam: Present soft and normal bowel sounds Extremities Exam Extremities exam: Present normal inspection and full ROM Neurological Exam Neurological exam: Present alert and other (Oriented x2) Psychiatric Psychiatric exam: Present other (Mentally sluggish) Medical Decision Making Medical Records Medical records reviewed: Yes I reviewed the patient's medical records. Josue Inquiry Pt receiving controlled substance: No Josue was queried for this patient: No Vital Signs: 05/14/22 03:05 05/14/22 03:09 05/14/22 03:31 Temperature 98.0 F 98.1 F Temperature Source Oral Oral Pulse Rate 95 H Pulse Rate [Right Brachial] 72 101 H Respiratory Rate 19 14 Blood Pressure 137/92 H Blood Pressure [Right Arm] 161/53 H 154/100 H Blood Pressure Mean Blood Pressure Mean [Right Arm] 89 118 Blood Pressure Source [Right Arm] Automatic Cuff Automatic Cuff Blood Pressure Position [Right Arm] Sitting Si
[2022-05-14 03:52] LABS: Basophils # 0.1 K/mm3 (0-0.2); Chloride 102 mmol/L (98-107); Eosinophils # 0.1 K/mm3 (0.0-0.4); Eosinophils % 0.8 % (0.1-12.0); Hematocrit 46.3 % (42.0-52.0); Hemoglobin 15.7 g/dL (14.1-18.0); Lymphocytes # 2.2 K/mm3 (0.7-4.5); Lymphocytes % 38.1 % (10-50); Mean Corpuscular HGB Conc 33.9 g/dL (31.8-35.4); Mean Corpuscular Hemoglobin 33.3 pg (27.0-31.2); Mean Corpuscular Volume 98.2 fl (80-94); Monocytes # 0.3 K/mm3 (0.1-1.0); Monocytes % 5.7 % (1.7-9.3); Neutrophils # 3.1 K/mm3 (1.8-7.8); Neutrophils % 54.4 % (37.0-80.0); Platelet Count 421 K/mm3 (142-424); Potassium 3.6 mmoL/L (3.5-5.1); Red Blood Count 4.72 M/mm3 (4.60-6.20); Red Cell Distribution Width 13.3 % (11.5-17.5); Sodium 142 mmol/L (136-145); White Blood Count 5.8 K/mm3 (4.8-10.8)
[2022-05-14 03:54] LABS: Blood Urea Nitrogen 17 mg/dl (9-20); Creatinine Clearance Estimated 56 mL/min (50-200); Estimated Glomerular Filt Rate 56 ml/min (>60); GFR (African American) 67 ML/MIN (>60)
[2022-05-14 03:55] LABS: Alanine Aminotransferase 27 U/L (12-78); Albumin Level 4.5 g/dl (3.5-5.0); Albumin/Globulin Ratio 1.3 (1.1-1.8); Alkaline Phosphatase 83 U/L (38-126); Anion Gap 14.6 mEq/L (5-15); Aspartate Amino Transferase 58 U/L (17-59); Bilirubin,Total 0.3 mg/dl (0.2-1.3); Carbon Dioxide 29 mmol/L (22.0-30.0); Globulin 3.4 g/dL (1.3-3.2); Total Protein,Serum 7.9 g/dl (6.3-8.2)
[2022-05-14 03:56] LABS: Calcium 8.5 mg/dl (8.4-10.2); Ethyl Alcohol 57 mg/dl (0-10); Glucose 123 mg/dl (74-100)
--- NOTE | 2022-05-14 04:16 | PC.NURSE ---
received phone call from son who stated he would send someone to fetch him .
--- NOTE | 2022-05-14 07:33 | PC.NURSE ---
07:00 Assumed pt care. Pt updated on plan of care; disposition of discharge. Contacted sister for ride. Pt spoke with sister. Water provided; pt tolerated.
== END 2022-05-14 07:48 | disposition home or self-care (01) ==
PROVIDERS: Emergency Provider Emergency Medicine
DX: T40.2X1A Poisoning by other opioids, accidental (unintentional), initial encounter (principal); F10.129 Alcohol abuse with intoxication, unspecified
CPT/HCPCS: 80053; 85025; 99283; 99285

== ENCOUNTER 2022-11-21 10:28 | Emergency (ER) | payer MEDICAID, SELFPAY ==
--- NOTE | 2022-11-21 10:33 | XR_ITS ---
PROCEDURE INFORMATION: Exam: XR Right Ribs with PA Chest Exam date and time: 11/21/2022 10:30 AM Age: 62 years old Clinical indication: Other: Right anterior sided chest/rib pain; Additional info: Right anterior sided chest pain, fell off of ghassan, previous bruising TECHNIQUE: Imaging protocol: Radiologic exam of the right ribs with PA chest. Views: 3 views COMPARISON: CR XR CHEST 2V 05/31/2021 4:09 PM FINDINGS: Lungs: Unremarkable. No consolidation. Pleural spaces: Unremarkable. No pleural effusion. No pneumothorax. Heart/Mediastinum: Unremarkable. No cardiomegaly. Bones/joints: Unremarkable. IMPRESSION: No acute findings.
[2022-11-21 11:05] VITALS: BP 159/92; PULSE 89; RESP 19; TEMP 37; O2SAT 96; BMI 18.3
--- NOTE | 2022-11-21 11:17 | EXP.UTC ---
Discharge Plan Disposition Patient Disposition: Home, Self-Care Condition: Good Prescriptions Prescriptions: New prednisone [prednisone] 20 mg tablet 20 mg PO BID Qty: 10 0RF No Action ondansetron HCl 4 MG tablet 4 mg PO Q6 PRN (Reason: Nausea And Vomiting) Qty: 12 0RF Patient Comments: does not take hydrocodone-acetaminophen 1 TAB tablet 1 tab PO Q6HP PRN (Reason: severe pain) Qty: 12 0RF Patient Comments: does not take ondansetron 4 MG tablet,disintegrating 4 mg PO TIDP PRN (Reason: Nausea) Qty: 12 0RF Referrals Follow up/Referrals: Provider,Referral, MD [Primary Care Provider] - See instructions Clinical Impressions Clinical Impression: Contusion Qualifiers: Encounter type: initial encounter Contusion area: thoracic wall Front or back of thoracic wall: front Thoracic wall location detail: right Qualified Code(s): S20.211A - Contusion of right front wall of thorax, initial encounter Instructions Patient Instructions: DI for Contusion Discharge ED Provider: Antonio ([facility])Nick [facility] HPI General Stated complaint: AO9/2@home, pain in Rt side ribs Source of Information: Patient Time Seen by Provider: 11/21/22 11:18 Description of Symptoms (Recalled from Triage Doc. by RN): PT STATES THAT HE WAS USING A FELECIA HAMMER 5 WEEKS AGO WHEN HE FLIPPED OVER IT AND IT LANDED ON HIM INJURING HIS RT RIBS AND STATES THE PAIN HAS NOT GOTTEN ANY BETTER HEENT Symptoms (Recalled from RN notes): No Resp Symptoms (Recalled from RN notes): No Skin Symptoms (Recalled from RN notes): No MS Symptoms (Recalled from RN notes): Yes Functional Status (Recalled from RN notes): WNL History of Present Illness Provider Complaint: 62 YR OLD MALE PRESENTS FOR CHEST WALL PAIN. PT STATES THAT HE WAS USING A FELECIA HAMMER 5 WEEKS AGO WHEN HE FLIPPED OVER IT AND IT LANDED ON HIM INJURING HIS RT RIBS AND STATES THE PAIN HAS NOT GOTTEN ANY BETTER. DENIES SOA Related Data Previous Rx's Medication Instructions Recorded hydrocodone 5 mg-acetaminophen 325 1 tab PO Q6HP PRN severe pain #12 05/28/20 mg tablet tabs ondansetron HCl 4 mg tablet 4 mg PO Q6 PRN Nausea And Vomiting 05/28/20 #12 tabs ondansetron 4 mg disintegrating 4 mg PO TIDP PRN Nausea #12 tabs 05/31/21 tablet prednisone 20 mg tablet 20 mg PO BID #10 tabs 11/21/22 Allergies Allergy/AdvReac Type Severity Reaction Status Date / Time No Known Allergies Allergy Verified 05/28/20 21:12 Worker's Comp Is this a Worker's Comp case?: No PFSH PFS Disclaimer: The information contained in this section may have been updated after the patient was seen, as this information can be updated by other users. Social History , [employer]) Smoking Status: Current every day smoker tobacco type: cigarettes second hand exposure: Yes alcohol intake: current substance use type: other current occupational status: employed Travel in the last 8 weeks: None household members: spouse caffeine: Yes ROS Obtained: Yes All systems reviewed & no additional complaints except as documented Constitutional Constitutional: Reports system reviewed and no additional complaints, except as documented and Reports as per HPI Eyes Eyes: Reports system reviewed and no additional complaints, except as documented ENT Ears, Nose, Mouth, and Throat: Reports system reviewed and no additional complaints, except as documented Cardiovascular Cardiovascular: Reports system reviewed and no additional complaints, except as documented and Denies dyspnea Respiratory Respiratory: Reports system reviewed and no additional complaints, except as documented, Reports as per HPI, Denies shortness of breath, Denies change in phlegm color, Denies chest congestion, Denies cough, Denies dyspnea, Denies pain on inspiration and Denies pain with cough Gastrointestinal Gastrointestingal: Reports system reviewed and no additional complaints, excep
[2022-11-21 11:30] VITALS: BP 159/92; PULSE 89; RESP 19; TEMP 37; O2SAT 96
== END 2022-11-21 11:33 | disposition home or self-care (01) ==
PROVIDERS: Emergency Provider Nurse Practitioner Family
DX: S20.211A Contusion of right front wall of thorax, initial encounter (principal); F17.210 Nicotine dependence, cigarettes, uncomplicated; W31.89XA Contact with other specified machinery, initial encounter
CPT/HCPCS: 71101; 99204; 99212; G0463

== ENCOUNTER → 2022-12-24 11:30 | Outpatient (CLI) | payer MEDICAID, SELFPAY ==
[2022-12-24 11:31] LABS: Basophils % 0.2 % (0.1-2.0); Eosinophils # 0.2 K/mm3 (0.0-0.4); Eosinophils % 2.1 % (0.1-12.0); Hematocrit 44.8 % (42.0-52.0); Hemoglobin 15.6 g/dL (14.1-18.0); Lymphocytes # 1.8 K/mm3 (0.7-4.5); Lymphocytes % 19.7 % (10-50); Mean Corpuscular HGB Conc 34.8 g/dL (31.8-35.4); Mean Corpuscular Hemoglobin 36.2 pg (27.0-31.2); Mean Corpuscular Volume 103.9 fl (80-94); Mean Platelet Volume 9.4 fl (7.4-10.4); Monocytes # 0.5 K/mm3 (0.1-1.0); Monocytes % 5.6 % (1.7-9.3); Neutrophils # 6.6 K/mm3 (1.8-7.8); Neutrophils % 72.4 % (37.0-80.0); Platelet Count 455 K/mm3 (142-424); Red Blood Count 4.31 M/mm3 (4.60-6.20); Red Cell Distribution Width 14.6 % (11.5-17.5); White Blood Count 9.1 K/mm3 (4.8-10.8)
[2022-12-24 12:29] LABS: Hemoglobin A1C 4.4 % (4.0-6.0)
[2022-12-24 12:42] LABS: Alanine Aminotransferase 23 U/L (12-78); Albumin Level 4.1 g/dl (3.5-5.0); Albumin/Globulin Ratio 1.3 (1.1-1.8); Alkaline Phosphatase 92 U/L (38-126); Amylase 82 U/L (30-110); Aspartate Amino Transferase 49 U/L (17-59); Bilirubin,Total 0.4 mg/dl (0.2-1.3); Blood Urea Nitrogen 11 mg/dl (9-20); Carbon Dioxide 24 mmol/L (22.0-30.0); Chloride 103 mmol/L (98-107); Estimated Glomerular Filt Rate 114 ml/min (>60); GFR (African American) 137 ML/MIN (>60); Globulin 3.2 g/dL (1.3-3.2); Glucose 145 mg/dl (74-100); Lipase 189 U/L (23-300); Sodium 139 mmol/L (136-145); Total Protein,Serum 7.3 g/dl (6.3-8.2)
[2022-12-24 12:49] LABS: Microalbumin/Creatinine Ratio 25.1
[2022-12-24 12:54] LABS: 25-OH Vitamin D, Total 41.4 ng/mL (30-100)
[2022-12-24 13:04] LABS: Creatinine,Urine Random 31 mg/dL (Not Estab.)
[2022-12-24 13:08] LABS: Prostate Specific Ag Screen 5.2 ng/ml (0.0-4.0)
[2022-12-24 13:28] LABS: Vitamin B12 226 pg/mL (239-931)
[2022-12-25 10:17] LABS: HBsAg Screen Negative (Negative); HCV Ab Non Reactive (Non Reactive); HIV Screen 4th Generation wRfx Non Reactive (Non Reactive); Hep A Ab, IGM Negative (Negative); Hep B Core Ab, IgM Negative (Negative)
== END ==
PROVIDERS: PCP Internal Medicine; Visit Provider Internal Medicine
DX: B34.8 Other viral infections of unspecified site (principal); R53.83 Other fatigue; R73.09 Other abnormal glucose; Z12.5 Encounter for screening for malignant neoplasm of prostate; Z11.4 Encounter for screening for human immunodeficiency virus [HIV]
CPT/HCPCS: 80053; 80074; 82043; 82150; 82306; 82570; 82607; 83036; 83690; 85025; 86703; G0103; G0432

== ENCOUNTER 2023-03-28 09:10 | Emergency (ER) | payer MEDICARE, SELFPAY ==
--- NOTE | 2023-03-28 09:17 | PC.NURSE ---
Dr. Baeza at [facility] for pt eval
--- NOTE | 2023-03-28 09:20 | CT_ITS ---
PROCEDURE INFORMATION: Exam: CT Abdomen And Pelvis With Contrast Exam date and time: 03/28/2023 10:24 AM Age: 62 years old Clinical indication: Pain; Other: Groin; Additional info: Severe R groin pain/testicular swelling x3d TECHNIQUE: Imaging protocol: Computed tomography of the abdomen and pelvis with contrast. Radiation optimization: All CT scans at this facility use at least one of these dose optimization techniques: automated exposure control; mA and/or kV adjustment per patient size (includes targeted exams where dose is matched to clinical indication); or iterative reconstruction. Contrast material: ISOVUE; Contrast volume: 75 ml; Contrast route: IV; COMPARISON: 1. CT ABDOMEN PELVIS W CON 05/28/2020 4:28 PM 2. US TESTICULAR 03/28/2023 9:51 AM FINDINGS: Lungs: No consolidation, lung nodules, or pleural effusions. Liver: No mass. No evidence of fat deposition. No surrounding fluid. Gallbladder and bile ducts: No calcified stones or wall thickening. No ductal dilation. Pancreas: No masses. No ductal dilation. Spleen: No splenomegaly. No masses or surrounding fluid. Adrenal glands: No mass. Kidneys and ureters: No hydronephrosis, calcified stones, or masses. Stomach and bowel: No intestinal masses, bowel wall thickening, or abnormal dilatation. Appendix: No evidence of appendicitis. Intraperitoneal space: No free air. No masses or significant fluid collection. Vasculature: No abdominal aortic aneurysm. No other significant abnormalities. Lymph nodes: No enlarged lymph nodes. Urinary bladder: Concentric wall thickening in the urinary bladder is likely due to small bladder volume, and no asymmetric wall enhancement are present. Reproductive: The right epididymis and vas deferens have contrast enhancement without a distinct mass. Low-density hydrocele in the right scrotum has a few enhancing septations. No enhancing masses are identified in the right testis. Left testis and epididymis have no abnormal enhancement. No abnormalities in the seminal vesicles or prostate. Bones/joints: No acute fracture or bone lesions. Soft tissues: Skin thickening and faint contrast enhancement are present in the right hemiscrotum. No perianal masses. IMPRESSION: 1. Right-sided epididymitis and suspected pyocele in the right hemiscrotum. 2. No testicular masses. 3. Bladder wall thickening is probably due to small volume. Consider cystitis in the proper clinical setting. 4. No other acute findings in the abdomen and pelvis.
--- NOTE | 2023-03-28 09:22 | HMH.EDGENADL ---
Discharge Plan Disposition Patient Disposition: Home, Self-Care Prescriptions Prescriptions: New levofloxacin 750 mg tablet 750 mg PO DAILY 14 Days Qty: 14 0RF No Action mecobalamin (vitamin B12) 1,000 mcg tablet,chewable 1,000 mcg PO DAILY 30 Days Qty: 30 4RF citalopram [Celexa] 20 mg tablet 20 mg PO DAILY Qty: 30 0RF Referrals Follow up/Referrals: Valentin Cohen DO [Primary Care Provider] - See instructions Valentin Norris MD [Staff Physician] - See instructions Activity Restrictions/Add. Instructions Additional Instructions/Restrictions: You were evaluated in the emergency department today. You have an infection in your right scrotum. It is very important that you pickle cutter your prescription for antibiotics and take the full course as prescribed. Please follow-up closely with urology as well as your primary care provider. We have Dr. Norris here, but we also have spoken with Urology who should be contacting you about follow up. Dr. Norris has clinic hours on Wednesday, so I would call them first thing in the morning to see if you can be seen. Take Tylenol and ibuprofen as needed for pain. Return to the emergency department for new or worsening symptoms, such as fevers, chills, nausea, vomiting, or other concerns. Clinical Impressions Clinical Impression: Acute epididymitis, Pyocele Instructions Patient Instructions: DI for Epididymitis, DI for Urinary Tract Infection (UTI) Discharge ED Provider: Grisel Baeza General Adult HPI General Chief complaint: Urogenital-Male Stated complaint: right lower pain in legs swelling Time Seen by Provider: 03/28/23 09:14 History of Present Illness HPI narrative: This patient is a 62-year-old male with a history of substance abuse and daily alcohol abuse presenting to the emergency department for evaluation with concern for right groin and testicular pain. Patient states that he has intermittently had bulging and pain in his right groin for the last 3 weeks, however for the last 3 to 4 days only has been different. He states that there is significant swelling and pain to his right testicle and the bulge in his right groin is not going away. It has been significantly worse the last 24 hours. His testicle swelling is entirely new, and he states it is extremely painful. He denies any traumatic injuries. He denies any fevers, chills, nausea, vomiting, changes in urinary output, changes in bowel movements such as constipation, diarrhea, or other concerns. He is still passing gas fine. He denies any history of abdominal surgeries. Related Data Previous Rx's Medication Instructions Recorded mecobalamin (vitamin B12) 1,000 1,000 mcg PO DAILY 30 days #30 tabs 12/24/22 mcg chewable tablet citalopram 20 mg tablet (Celexa) 20 mg PO DAILY #30 tabs 01/11/23 levofloxacin 750 mg tablet 750 mg PO DAILY 14 days #14 tabs 03/28/23 Allergies Allergy/AdvReac Type Severity Reaction Status Date / Time prednisone AdvReac Verified 01/25/23 09:10 [facility] Disclaimer: The information contained in this section may have been updated after the patient was seen, as this information can be updated by other users. 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 Travel in the last 8 weeks: None household members: spouse caffeine: Yes ROS Obtained: Yes All systems reviewed & no additional complaints except as documented Physical Exam General General appearance: alert and in no apparent distress Comment: uncomfortable appearing Head Head exam: atraumatic and normocephalic Eye Eye exam: Present normal appearance, PERRL and EOMI ENT ENT exam: Present normal exam, normal oropharynx, mucous membranes moist and normal external ear exam Neck Neck exam: Present normal inspection, full ROM and trachea midline; Absent tenderness Chest Chest inspection: Present normal inspection and symmetric chest wall rise; Absent tenderness Respiratory Respiratory exam: Present normal lung sounds bilaterally; Absent respiratory distress, wheezes, stridor or accessory muscle use Cardiovascular Cardiovascular exam: Present regular rate and normal rhythm Abdominal Exam Abdominal exam: Present soft, tenderness (lower abdomen), normal bowel sounds and hernia (R inguinal hernia); Absent distention, guarding, rebound or rigidity exam: Present testicular tenderness, scrotal swelling and other (R testicle swollen, elevated, and extremely tender with erythema to the R scrotum) Extremities Exam Extremities exam: Present normal inspection, full ROM and normal capillary refill; Absent tenderness or edema Back Exam Back exam: Present normal inspection and full ROM; Absent tenderness Neurological Exam Neurological exam: Present alert, oriented X3, CN II-XII intact and normal gait; Absent motor sensory deficit Psychiatric Psychiatric exam: Present normal affect and normal mood Skin Skin exam: Present warm and dry Medical Decision Making Medical Records Medical records reviewed: Yes I reviewed the patient's medical records. Josue Inquiry Pt receiving controlled substance: No Vital Signs: 03/28/23 09:24 03/28/23 12:11 Temperature 98.3 F Temperature Source Oral Pulse Rate 64 Pulse Rate [Left] 91 H Respiratory Rate 20 Blood Pressure 128/93 H Blood Pressure [Right Radial Artery] 145/85 H Blood Pressure Mean [Right Radial Artery] 105 Blood Pressure Position [Right Radial Artery] Sitting 02 Sat by Pulse Oximetry 100 98 Oxygen Delivery Method Room Air Room Air Lab Data Lab results reviewed: Yes I reviewed the patient's lab results. Lab Results 03/28/23 09:28: WBC 13.1 H, RBC 4.51 L, Hgb 15.6, Hct 44.7, MCV 99.0 H, MCH 34.5 H, MCHC 34.8, RDW 14.1, Plt Count 407, MPV 7.7, Neut % (Auto) 79.2, Lymph % (Auto) 13.8, Lee % (Auto) 5.8, Eos % (Auto) 0.9, Baso % (Auto) 0.3, Neut # (Auto) 10.4 H, Lymph # (Auto) 1.8, Lee # (Auto) 0.8, Eos # (Auto) 0.1, Baso # (Auto) 0.0, Sodium 135 L, Potassium 3.6, Chloride 101, Carbon Dioxide 30, Anion Gap 7.6, BUN 7 L, Creatinine 0.90, Estimated Creat Clear 62, Estimated GFR 85, Est GFR ( Amer) 103, Glucose 153 H, Lactate 1.0, Calcium 8.7, Total Bilirubin 1.1, AST 28, ALT 18, Alkaline Phosphatase 89, Total Protein 7.5, Albumin 3.9, Globulin 3.6 H, Albumin/Globulin Ratio 1.1 03/28/23 10:33: Urine Color Yellow, Urine Appearance Clear, Urine pH 5.5, Ur Specific [place] >= 1.030, Urine Protein Negative, Urine Glucose (UA) Negative, Urine Ketones Negative, Urine Blood Trace-i, Urine Nitrate Positive, Urine Bilirubin Negative, Urine Urobilinogen 1.0, Ur Leukocyte Esterase 2+ A, Urine RBC Occasional, Urine WBC 5-10, Ur Squamous Epith Cells Occasional, Urine Bacteria Trace 03/28/23 09:28 03/28/23 09:28 Orders (Tests/Meds): ED MEDICATIONS Generic Name Dose Route Start Last Admin Trade Name Frepatricia PRN Reason Stop Dose Admin Sodium Chloride 10 ml 03/28/23 10:33 03/28/23 10:34 Sodium Chloride 0.9% 10ml Syr (Rad Only) IV 04/27/23 10:32 10 ml NEEDED PRN Administration Maintain IV Site Discontinued Medications Generic Name Dose Route Start Last Admin Trade Name Freq PRN Reason Stop Dose Admin Acetaminophen 1,000 mg 03/28/23 09:29 03/28/23 09:37 Acetaminophen 1,000mg/100ml Vial IV 03/28/23 09:30 1,000 mg ONCE ONE Administration Ceftriaxone Sodium 2 gm/ 100 mls @ 200 mls/hr 03/28/23 11:57 03/28/23 12:16 Sodium Chloride IV 03/28/23 12:26 200 mls/hr ONCE ONE Administration Iopamidol 75 ml 03/28/23 10:33 03/28/23 10:34 Iopamidol-370 (76%);100ml Bottle IV 03/28/23 10:34 75 ml ONCE ONE Administration Ketorolac Tromethamine 15 mg 03/28/23 09:29 03/28/23 09:37 Ketorolac 30mg/Ml Vial IV 03/28/23 09:30 15 mg ONCE ONE Administration Levofloxacin 750 mg 03/28/23 11:58 03/28/23 12:17 Levofloxacin 750 Mg Tablet PO 03/28/23 11:59 750 mg ONCE ONE Administration ORDERS Category Date Time Status CT abdomen pelvis w con Stat Cat Scan 03/28/23 09:20 Completed Complete Blood Count Auto Diff Stat Lab 03/28/23 09:28 Completed Comprehensive Metabolic Panel Stat Lab 03/28/23 09:28 Completed Lactic Acid Stat Lab 03/28/23 09:28 Completed UA [Urinalysis and Microscopic] Stat Lab 03/28/23 10:33 Completed Urine Culture Stat Micro 03/28/23 10:33 Received US Testicular Stat Ultrasound 03/28/23 09:25 Completed Medical Decision Narrative: In summary, this patient is a 62-year-old male presenting to the Emergency Department for evaluation of right testicular pain and swelling as well as intermittent bulge of his right groin over the last several weeks. Differential diagnoses considered include but are not limited to inguinal hernia, incarcerated hernia, testicular torsion, hydrocele, epididymitis, orchitis. Ruling out the most morbid conditions drove assessment. It should be noted patient's history includes substance abuse and daily alcohol use which is not at goal therapy. This complicates all aspects of care by increasing patient's risk for morbidity. I feel the patient likely does have a hernia based on his clinical presentation of the intermittent bulge in his right groin for the past 2 to 3 weeks as well as a soft hernia in the right groin, however his testicle is extremely swollen and tender with skin color changes and elevation of the testicle. High concern for testicular torsion or other testicular pathology. Workup included BC, CMP, lactic acid, urinalysis, urine gonorrhea, urine chlamydia, CT abdomen and pelvis with IV contrast, and testicular ultrasound. He was given IV Toradol and acetaminophen for symptomatic improvement. I independently interpreted ultrasound and CT scan prior to the radiologist read and noted septated fluid collection in the right scrotum with concerns for epididymitis as well. Please see their read for final interpretation. They did concern for pyocele. They also noted good flow to the testicle without concern for torsion. Labs were obtained that demonstrated acidosis and concerns for urinary tract infection without other acute concerns. Patient is afebrile with normal vital signs on cardiac telemetry. On reassessment, patient had good improvement after administration of interventions as above. I called and had an interactive discussion with Dr. Paniagua with urology at [facility] who advised the patient should be treated with antibiotics, including Levaquin, and should have close follow-up with urology as well as her primary care provider. I provided him with information for urology follow-up here, [facility] is also going to help schedule an appointment. If he wishes to be evaluated there. He was given a dose of IV Rocephin here in the emergency department as well as oral Levaquin. At this time, he was reviewed prior to discharge with prescription for Levaquin. He was given instructions to complete the course of antibiotics, instructions for close patient follow-up, and strict return precautions, such as fever, increasing pain, or other concerns. He was discharged in stable condition after all questions were answered. Critical Care Critical Care Time Critical Care Time: No
[2023-03-28 09:24] VITALS: BP 145/85; PULSE 91; RESP 20; TEMP 36.8; O2SAT 100; BMI 20.9
--- NOTE | 2023-03-28 09:25 | US_ITS ---
PROCEDURE INFORMATION: Exam: US Scrotum Exam date and time: 03/28/2023 9:51 AM Age: 62 years old Clinical indication: Scrotum pain; Additional info: R testicular pain/swelling/tenderness, R/O torsion TECHNIQUE: Imaging protocol: Real-time ultrasound of the scrotum and contents with color Doppler and image documentation. COMPARISON: CT ABDOMEN PELVIS W CON 05/28/2020 4:28 PM FINDINGS: Right testicle: No testicular mass. No torsion. Color Doppler signals are slightly more prominent than in the left testis. Multiloculated hydrocele, particularly around the head of the epididymis, has multiple internal septations. Prominent gonadal vein in the inguinal canal has less intense color Doppler flow with Valsalva than without. Testicular appendix measures 3 mm enhance typical hyper echo consistency. No color Doppler images of the testicular appendix are provided. Left testicle: No mass. No torsion. Normal vascular flow. Small hydrocele. Epididymides: The head of the right epididymis is thickened and has hypervascular color Doppler signals. The tail has homogeneous, hypoechoic thickening with only mild color Doppler signals. No abnormalities in the left epididymis Scrotum/soft tissues: Skin thickening and echogenic edematous subcutaneous fat is slightly more pronounced on the right than on the left. IMPRESSION: 1. No testicular masses or torsion. 2. Epididymitis on the right. 3. Multiloculated hydrocele with internal septations may represent infection (pyocele). 4. Scrotum appears edematous, right more than left. 5. Possible right-sided varicocele. 6. Small left hydrocele.
[2023-03-28] MEDS: KETOROLAC 30MG/ML VIAL 15 MG IV (09:37)
[2023-03-28] MEDS: ACETAMINOPHEN 1,000MG/100ML VIAL 1000 MG IV (09:37)
[2023-03-28 09:48] LABS: Basophils % 0.3 % (0.1-2.0); Chloride 101 mmol/L (98-107); Eosinophils # 0.1 K/mm3 (0.0-0.4); Eosinophils % 0.9 % (0.1-12.0); Hematocrit 44.7 % (42.0-52.0); Hemoglobin 15.6 g/dL (14.1-18.0); Lymphocytes # 1.8 K/mm3 (0.7-4.5); Lymphocytes % 13.8 % (10-50); Mean Corpuscular HGB Conc 34.8 g/dL (31.8-35.4); Mean Corpuscular Hemoglobin 34.5 pg (27.0-31.2); Mean Platelet Volume 7.7 fl (7.4-10.4); Monocytes # 0.8 K/mm3 (0.1-1.0); Monocytes % 5.8 % (1.7-9.3); Neutrophils # 10.4 K/mm3 (1.8-7.8); Neutrophils % 79.2 % (37.0-80.0); Platelet Count 407 K/mm3 (142-424); Red Blood Count 4.51 M/mm3 (4.60-6.20); Red Cell Distribution Width 14.1 % (11.5-17.5); White Blood Count 13.1 K/mm3 (4.8-10.8)
[2023-03-28 09:49] LABS: Potassium 3.6 mmoL/L (3.5-5.1); Sodium 135 mmol/L (136-145)
[2023-03-28 09:51] LABS: Alanine Aminotransferase 18 U/L (12-78); Aspartate Amino Transferase 28 U/L (17-59); Blood Urea Nitrogen 7 mg/dl (9-20); Creatinine Clearance Estimated 62 mL/min (50-200); Estimated Glomerular Filt Rate 85 ml/min (>60); GFR (African American) 103 ML/MIN (>60)
[2023-03-28 09:52] LABS: Albumin Level 3.9 g/dl (3.5-5.0); Albumin/Globulin Ratio 1.1 (1.1-1.8); Alkaline Phosphatase 89 U/L (38-126); Anion Gap 7.6 mEq/L (5-15); Bilirubin,Total 1.1 mg/dl (0.2-1.3); Calcium 8.7 mg/dl (8.4-10.2); Carbon Dioxide 30 mmol/L (22.0-30.0); Globulin 3.6 g/dL (1.3-3.2); Glucose 153 mg/dl (74-100); Total Protein,Serum 7.5 g/dl (6.3-8.2)
--- NOTE | 2023-03-28 09:53 | PC.NURSE ---
pt gone to u/s via wheelchair
[2023-03-28] MEDS: SODIUM CHLORIDE 0.9% 10ML SYR (RAD ONLY) 10 ML IV (10:34)
[2023-03-28] MEDS: IOPAMIDOL-370 (76%);100ML BOTTLE 75 ML IV (10:34)
[2023-03-28 10:38] LABS: Microscopic, Urine URINE MICROSCOPIC (MICROSCOPIC)
[2023-03-28 10:44] LABS: Appearance,Urine CLEAR (Clear); Blood, Urine TRACE-I (Negative); Color,Urine YELLOW (Yellow); Glucose,Urine (UA) Negative (Negative); Ketones,Urine Negative (Negative); Leukocyte Esterase,Urine 2+ (Negative); Nitrate,Urine POSITIVE (Negative); PH,Urine 5.5 (5.0-8.5); Protein,Urine Negative (Negative); Specific Gravity, Urine >= 1.030 (1.005-1.030)
[2023-03-28 10:49] LABS: Bilirubin,Urine Negative (Negative)
[2023-03-28 11:01] LABS: Bacteria,Urine Trace /lpf; RBC,Urine Occasional #/hpf (0-3); Squamous Epithelial Cell,Urine Occasional #/hpf (0-5)
--- NOTE | 2023-03-28 11:37 | PC.NURSE ---
Spoke with transfer center about consult with urology. Advised they would call back.
--- NOTE | 2023-03-28 11:54 | PC.NURSE ---
Dr. Baeza speaking with Dr. Paniagua
[2023-03-28 12:11] VITALS: BP 128/93; PULSE 64; O2SAT 98
[2023-03-28] MEDS: CEFTRIAXONE SODIUM 2 GM in 0.9 % SODIUM CHLORIDE 100 ML IV (12:16)
[2023-03-28] MEDS: levoFLOXacin 750 MG TABLET PO (12:17)
[2023-03-28 13:12] VITALS: BP 134/88; PULSE 88; RESP 18; TEMP 36.9; O2SAT 94
--- NOTE | 2023-04-01 08:29 | PC.NURSE ---
urine results discussed with , pt dc with levaquin, no further action at this time
== END 2023-03-28 13:13 | disposition home or self-care (01) ==
PROVIDERS: Emergency Provider Emergency Medicine; PCP Internal Medicine
DX: N45.1 Epididymitis (principal); N43.1 Infected hydrocele; N50.82 Scrotal pain
CPT/HCPCS: 74177; 76870; 80053; 81001; 83605; 85025; 87086; 96365; 96375; 99285; J0131; J0696; Q9967

== ENCOUNTER 2023-04-12 14:41 | Outpatient (CLI) | payer MEDICARE, SELFPAY ==
--- NOTE | 2023-04-01 06:30 | PC.NURSE ---
prelim urine culture results; patient was d/c'd on levaquin and atb is appropriate per dr piper
[2023-04-12 16:10] LABS: Prostate Specific Ag Screen 2.3 ng/ml (0.0-4.0)
== END 2023-04-12 23:59 ==
LOC: LAB 14:42
PROVIDERS: PCP Internal Medicine; Visit Provider Urology
DX: Z12.5 Encounter for screening for malignant neoplasm of prostate (principal)
CPT/HCPCS: 36415; G0103

== ENCOUNTER 2024-07-04 10:52 | Emergency (ER) | payer MEDICARE, MEDICAID, SELFPAY ==
[2024-07-04 11:00] VITALS: BP 168/101; PULSE 121; RESP 20; TEMP 37; O2SAT 98; BMI 21.7
--- NOTE | 2024-07-04 11:12 | ECG_ITS ---
APPROVED REPORT Exam: Resting ECG HR:93 bpm ECG Measurements Heart Rate 93 AXES NC 143 P 79 QRSd 93 QRS 51 QT 377 T 66 QTc 428 Conclusion Sinus rhythm Electronically signed by : LIZABETH JACOBS, 07/06/2024 11:41:35
--- NOTE | 2024-07-04 11:58 | ED_ITS ---
Discharge Plan Disposition Patient Disposition: Home, Self-Care Chief Complaint: PAIN Prescriptions Prescriptions: No Action mecobalamin (vitamin B12) 1,000 mcg tablet,chewable 1,000 mcg PO DAILY 30 Days Qty: 30 4RF citalopram [Celexa] 20 mg tablet 20 mg PO DAILY Qty: 30 0RF Referrals Follow up/Referrals: Provider,Referral, MD [Primary Care Provider] - See instructions Activity Restrictions/Add. Instructions Additional Instructions/Restrictions: Begin taking multivitamins daily. Try, as best you can, to cut back on alcohol intake. Call your family doctor to establish care for this visit to the emergency department and schedule follow-up within 48 hours to ensure improvement. If you have any worsening of your condition or any other concerning signs or symptoms, return to the emergency department or your primary care doctor for further evaluation. Clinical Impressions Clinical Impression: Acute glossitis, Cheilosis Print Language Print Language: Persian Discharge ED Provider: Andre Ferrara General Adult HPI General Chief complaint: PAIN Stated complaint: diff. swallowing tongue/mouth swelling Time Seen by Provider: 07/04/24 10:59 Mode of Arrival: Family Vehicle Source of Information: Patient and Medical Record Description of Symptoms (Recalled from ER Triage Doc. by RN): Pt presents to ER with concerns of sore mouth, sore throat, face feels thick and heavy , and his neck feels swollen . Denies any trouble breathing or SOA. Pt's mouth is back of throat is red and irritated. Pt states he woke up on Sturday with his throat feeling this way. Today while a work, he noticed he just didn't feel right . He does drink alcohol daily, typically 2 pints of whiskey throughout the day. He has been drinking today since 5 am. He reports that yesterday he had some heaviness to this chest, none currently. History of Present Illness HPI narrative: Please note that above description of symptoms, in this electronic medical record under categorization of recalled from ER triage doctor by RN are reflective of an initial nursing assessment, however, is not reflective of my full history and physical exam that was personally taken and clarified. Consequentially, this preceding description of symptoms, which may include the patient's categorized chief complaint in the EMR, do not reflect my personal clinical impression, and the ultimate description of history of present illness and patient stated complaints should be deferred to this section of the note. Unless stated otherwise or congruent with this section of the note, additional signs, symptoms, or incongruence should be interpreted as inaccurate with my clinical impression. Related Data Previous Rx's ?Medication ?Instructions ?Recorded mecobalamin (vitamin B12) 1,000 1,000 mcg PO DAILY 30 days #30 tabs 12/24/22 mcg chewable tablet citalopram 20 mg tablet (Celexa) 20 mg PO DAILY #30 tabs 01/11/23 Allergies Allergy/AdvReac Type Severity Reaction Status Date / Time prednisone AdvReac Verified 04/12/23 13:53 [facility] Disclaimer: The information contained in this section may have been updated after the patient was seen, as this information can be updated by other users. 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 Travel in the last 8 weeks?: None household members: spouse caffeine: Yes Have you lived/traveled outside [place] in past 30 days?: No Contact w/someone who lives/traveled outside US past 30 days?: No Exposure to someone with infectious disease in past 14 days?: No Do you have a fever (greater than 100.4 F or 38 C)?: No Have you tested positive for COVID-19?: No Exposed to someone with COVID-19 in past 14 days?: No Do you have a sore throat?: No Do you have a cough?: No Do you have any weakness?: No Do you have any diarrhea?: No Are you experiencing any unusual bleeding?: No Do you have any muscle aches/pain?: No Do you have any abdominal pain?: Yes Are you experiencing loss of taste or smell?: No Other Medical History Have you received the Flu Vaccine for this season: No Have you received the Pneumonia Vaccine: No ROS Obtained: Yes All systems reviewed & no additional complaints except as documented Physical Exam General General appearance: alert Head Head exam: atraumatic and normocephalic Eye Eye exam: Present normal appearance, PERRL and EOMI ENT ENT exam: Present other (Glossitis, chelosis) Neck Neck exam: Present normal inspection, full ROM and trachea midline Respiratory Respiratory exam: Absent respiratory distress, wheezes, stridor, accessory muscle use or prolonged expiratory phase Cardiovascular Cardiovascular exam: Present other (Pulses equal symmetric in upper and lower extremities) Abdominal Exam Abdominal exam: Present soft; Absent distention, tenderness or pulsatile mass Extremities Exam Extremities exam: Absent edema Neurological Exam Neurological exam: Present alert, oriented X3 and CN II-XII intact; Absent motor sensory deficit Skin Skin exam: Present warm and dry; Absent diaphoresis or erythema Medical Decision Making Medical Records Medical records reviewed: Yes I reviewed the patient's medical records. Screening: Per USPSTF and CDC recommendations, given the prevalence of disease in our region, it is our hospital?s policy to screen for HIV and viral Hepatitis for all patients aged 18 and over and those with ongoing risk factors. Josue Inquiry Pt receiving controlled substance: No Josue was queried for this patient: No Vital Signs: 07/04/24 11:00 07/04/24 11:59 Temperature 98.6 F Temperature Source Axillary Pulse Rate 94 H Pulse Rate [Right] 121 H Respiratory Rate 20 Blood Pressure 134/96 H Blood Pressure [Right Arm] 168/101 H Blood Pressure Mean [Right Arm] 123 Blood Pressure Source [Right Arm] Automatic Cuff 02 Sat by Pulse Oximetry 98 97 Oxygen Delivery Method Room Air Room Air Lab Data Lab Results 07/04/24 12:09: WBC 7.7, RBC 4.58 L, Hgb 15.5, Hct 42.5, MCV 92.8, MCH 33.8 H, M CHC 36.5 H, RDW 13.9, Plt Count 279, MPV 8.9, Neut % (Auto) 74.3, Lymph % (Auto) 14.3, [place] % (Auto) 10.2 H, Eos % (Auto) 0.4, Baso % (Auto) 0.5, Neut # (Auto) 5.7, Lymph # (Auto) 1.1, [place] # (Auto) 0.8, Eos # (Auto) 0.0, Baso # (Auto) 0.0, Sodium 140, Potassium 3.9, Chloride 102, Carbon Dioxide 29, Anion Gap 12.9, BUN 9, Creatinine 1.10, Estimated Creat Clear 57, Estimated GFR 67, Est GFR ( Amer) 81, Glucose 109 H, Calcium 9.8, Magnesium 1.8, Total Bilirubin 1.3, AST 111 H, ALT 28, Alkaline Phosphatase 94, Total Protein 8.4 H, Albumin 5.0, G lobulin 3.4 H, Albumin/Globulin Ratio 1.5, HCV Ab CELIA w/Rflx PCR Qn Negative, HIV Ag/Ab Combo Qual Negative 07/04/24 12:09 07/04/24 12:09 Orders (Tests/Meds): ED MEDICATIONS Generic Name Dose Route Start Last Admin Trade Name Freq PRN Reason Stop Dose Admin Multivitamins 10 ml/ Thiamine 1,015 mls @ 500 mls/hr 07/04/24 11:58 07/04/24 12:34 HCl 100 mg/ Magnesium Sulfate IV 07/04/24 13:59 500 mls/hr 2 gm/ Lactated Ringer's .Q2H2M ONE Administration ORDERS Category Date Time Status Consult Health Promotion Educator [CONS] Routine Cons 07/04/24 12:24 Active CBC w/Auto Diff [Complete Blood Count Auto Diff] Stat Lab 07/04/24 12:09 Completed CMP [Comprehensive Metabolic Panel] Stat Lab 07/04/24 12:09 Results Folate Stat Lab 07/04/24 12:09 Received HIV Combo Stat Lab 07/04/24 12:09 Completed Hepatitis C Ab Qual. W/ RFX Stat Lab 07/04/24 12:09 Completed MAG [Magnesium] Stat Lab 07/04/24 12:09 Results Vitamin B12 Stat Lab 07/04/24 12:09 Results Zinc Stat Lab 07/04/24 12:24 Received Medical Decision Narrative: 64-year-old male presenting with tongue pain. He states that his tongue has been hurting for the last couple months, getting worse over the last couple days. States that it makes his jaw feel heavy and his throat feels dry. No range of motion of neck difficulties, vision changes, fevers, chills, nausea or vomiting, chest pain, shortness of breath, difficulty swallowing, or breathing, but he does have mild odynophagia. Patient states that he does not smoke, never has, but drinks 2 pints of hard liquor daily. Has been doing this for over 2 years. Does not take any supplements or multivitamins, states that he has very little p.o. intake in general. History was obtained via conversation with Patient. On arrival, patient hemodynamically stable, alert, oriented x4, appropriate, GCS 15, moving all extremities spontaneously, pupils equal and reactive to light. Full physical exam performed and significant for 64-year-old male who is anxious and intermittently tearful. He has glossitis and chelosis, easy bleeding of the gums when scraped. No stridor, full range of motion of the neck, lungs are clear, speaking in full sentences. Differential includes vitamin, mineral deficiency, less likely to be anaphylaxis, thrush, malignancy, angioedema, allergic reaction, among others. Patient placed on continuous cardiac monitoring and continuous pulse ox with initial blood pressure 168/101, heart rate 121, saturation 98% on room air. Independent interpretation of EKG shows sinus rhythm 93 bpm with RI 143, QRS 93, QTc 428. Normal axis no acute ischemic change. Patient was given rally pack for symptomatic management and correction of underlying abnormalities. Workup independently interpreted and significant for nonactionable CBC or chemistry overall. On reevaluation, patient resting comfortably. Consult placed to addiction contracting support specialist. Given patient presentation, workup, history, this most likely represents glossitis in the setting of vitamin deficiency. Because patient at baseline without signs or symptoms of clinical decompensation, deemed appropriate for discharge. Results were relayed to patient who voiced understanding and were agreeable to outpatient management and follow up. I discussed my clinical impression with patient and answered all questions. At this time, the evidence for any other entities in the differential is insufficient to warrant any further testing or ED observation. This was explained as well. Advisory was given that persistent or worsening symptoms require further evaluation. I confirmed the understanding of this discussion. Recommended patient take B vitamin/multivitamin complex to help reduce symptoms. [employer] Business Development Manager disclaimer Much of this encounter note is an electronic audit senior associate spoken language to printed text. Electronic audit senior associate of the spoken language may permit errors. Although I have reviewed the note, some errors may still exist. Critical Care Critical Care Time Critical Care Time: No
[2024-07-04 11:59] VITALS: BP 134/96; PULSE 94; O2SAT 97
[2024-07-04 12:16] LABS: Basophils % 0.5 % (0.1-2.0); Eosinophils % 0.4 % (0.1-12.0); Hematocrit 42.5 % (42.0-52.0); Hemoglobin 15.5 g/dL (14.1-18.0); Immature Granulocytes # 0.02 10^3uL; Immature Granulocytes % 0.3 %; Lymphocytes # 1.1 K/mm3 (0.7-4.5); Lymphocytes % 14.3 % (10-50); Mean Corpuscular HGB Conc 36.5 g/dL (31.8-35.4); Mean Corpuscular Hemoglobin 33.8 pg (27.0-31.2); Mean Corpuscular Volume 92.8 fl (80-94); Mean Platelet Volume 8.9 fl (7.4-10.4); Monocytes # 0.8 K/mm3 (0.1-1.0); Monocytes % 10.2 % (1.7-9.3); Neutrophils # 5.7 K/mm3 (1.8-7.8); Neutrophils % 74.3 % (37.0-80.0); Nucleated Red Blood Cells # 0 10^3/uL; Nucleated Red Blood Cells % 0 %; Platelet Count 279 K/mm3 (142-424); Red Blood Count 4.58 M/mm3 (4.60-6.20); Red Cell Distribution Width 13.9 % (11.5-17.5); Red Cell Distribution Width-SD 46.7 fL; White Blood Count 7.7 K/mm3 (4.8-10.8)
[2024-07-04 12:24] LABS: Chloride 102 mmol/L (98-107)
[2024-07-04 12:25] LABS: Potassium 3.9 mmoL/L (3.5-5.1); Sodium 140 mmol/L (136-145)
[2024-07-04 12:27] LABS: Alanine Aminotransferase 28 U/L (12-78); Aspartate Amino Transferase 111 U/L (17-59); Blood Urea Nitrogen 9 mg/dl (9-20); Creatinine Clearance Estimated 57 mL/min (50-200); Estimated Glomerular Filt Rate 67 ml/min (>60); GFR (African American) 81 ML/MIN (>60)
[2024-07-04 12:28] LABS: Albumin/Globulin Ratio 1.5 (1.1-1.8); Alkaline Phosphatase 94 U/L (38-126); Anion Gap 12.9 mEq/L (5-15); Bilirubin,Total 1.3 mg/dl (0.2-1.3); Calcium 9.8 mg/dl (8.4-10.2); Carbon Dioxide 29 mmol/L (22.0-30.0); Globulin 3.4 g/dL (1.3-3.2); Glucose 109 mg/dl (74-100); Magnesium 1.8 mg/dl (1.6-2.3); Total Protein,Serum 8.4 g/dl (6.3-8.2)
[2024-07-04] MEDS: MVI, ADULT NO.1 WITH VIT K 10 ML, THIAMINE HCL 100 MG, MAGNESIUM SULFATE 2 GM in LACTAT... 500 ML IV (12:34)
[2024-07-04 13:21] LABS: HIV Combo NEGATIVE (Negative)
[2024-07-04 13:29] LABS: Hepatitis C Ab Qual. W/ RFX NEGATIVE (Negative)
[2024-07-04 13:39] VITALS: BP 189/102; PULSE 94; O2SAT 98
[2024-07-04 13:53] LABS: Folate 6.23 ng/mL
[2024-07-04 14:12] LABS: Vitamin B12 265 pg/mL (239-931)
[2024-07-04 14:13] VITALS: BP 189/105; PULSE 94; RESP 20; TEMP 37; O2SAT 98
--- NOTE | 2024-07-04 15:32 | PEERSUPPORT ---
Peer Support Note Patient Information Patient Information: DOS: 07/04/2024 ? Reason: ETOH ? ED Ps consult ? Drug(s) of Choice: alcohol, stimulants cocaine (smoke or snort, klonopin (snort) ? Last Use: Started drinking at 5 am this morning Juno Perez. One line of cocaine yesterday on 07/03/2024. ? UDS Positive: ?No UDS ? Use Hx: Heavily used RX pain pills for many years, turned to alcohol three years ago after, uses cocaine socially when someone has it but does not seek it out himself, nerve pills when available for anxiety.? ? Narcan/self: 3x ? Previous MAT/MOUD: Never enrolled in a program. Took suboxone one time, had a bad experience with sickness and vomiting. Pt stated he had used opiates before taking suboxone. ? Ps educated on precipitated withdrawal with OUD and taking BUP. Current MAT/MOUD: None ? Desire for MAT/MOUD: None at the moment; pt stated he will consider and reach back out to ps. ? Previous Treatment: Psych admissions multiple times, never a substance use treatment program. ? Support System: Girlfriend ? Legal Issues: None ? Potential Barriers: -Unsecured housing -Lack of support/ connection to recovery -No PCP -Unattended mental and emotional health; grief of , disconnected from children and grandchildren? -Basic needs not met- sleep, food, support, housing Insurance: Medicare ? Harm reduction: -Connection to [facility] peer support -Education on MARGARET -Resources and Treatment referrals -Encouragement to reestablish pcp in [place], [place]. -Awareness to Behavioral Health/[facility]? ? Motivation for Change: Pt stated he does not plan on quitting drinking, he has found comfort in a bottle ever since the of his . He briefly shared his history with mental health and awareness of his depression and anxiety. He identifies his lack of support for recovery and wellness in his living situation that allows him to continue drinking and using. He reflects on his life being for 24 years then losing his to a tragic and not been himself ever since. ? 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 Pt shared his belief in congregational that brings him strength.? Pt is disconnected from his family members who he has not spoken to in years. ? Ps shared personal experiences and awareness to meeting others through the recovery community and treatment that is available that bring a hope and strength through connection. ? Ps is receptive to ps, expressing gratitude for the conversation and will likely be reaching back out.?
[2024-07-07 23:09] LABS: Zinc 67 ug/dL (44-115)
== END 2024-07-04 14:16 | disposition home or self-care (01) ==
PROVIDERS: Emergency Provider Emergency Medicine
DX: K14.0 Glossitis (principal); K13.0 Diseases of lips; F10.10 Alcohol abuse, uncomplicated; E56.9 Vitamin deficiency, unspecified; Z11.59 Encounter for screening for other viral diseases; Z11.4 Encounter for screening for human immunodeficiency virus [HIV]
CPT/HCPCS: 80053; 82607; 82746; 83735; 84630; 85025; 86803; 87389; 93005; 96365; 96366; 99284; J3411; J3475; J7120